=== PATIENT | female | born 1960 | race Caucasian/White ===

== ENCOUNTER → 2017-04-11 | Outpatient (CLI) | payer MEDICAID ==
[2017-04-11 13:07] LABS: AUTOMATED NEUTROPHIL # 5.4 TH/MM3 (1.8-7.7); BASOPHIL # 0.1 TH/MM3 (0-0.2); BASOPHIL % 0.9 % (0.0-2.0); EOSINOPHIL # 0.2 TH/MM3 (0-0.4); EOSINOPHIL % 2.4 % (0.0-4.0); HEMATOCRIT 45.3 % (35.0-46.0); HEMO FLAGS DIFF FINAL; HEMOGLOBIN 15.2 GM/DL (11.6-15.3); LYMPH % 21.6 % (9.0-44.0); LYMPHOCYTE # 1.7 TH/MM3 (1.0-4.8); MEAN CELL VOLUME 94.8 FL (80.0-100.0); MEAN CORPUSCULAR HEMOGLOBIN 31.8 PG (27.0-34.0); MEAN CORPUSCULAR HGB CONC 33.6 % (32.0-36.0); MEAN PLATELET VOLUME 9.1 FL (7.0-11.0); MONO % 7.6 % (0.0-8.0); MONOCYTE # 0.6 TH/MM3 (0-0.9); NEUT % 67.5 % (16.0-70.0); PLATELET COUNT 239 TH/MM3 (150-450); RED BLOOD COUNT 4.78 MIL/MM3 (4.00-5.30); RED CELL DISTRIBUTION WIDTH 13.6 % (11.6-17.2)
[2017-04-11 13:16] LABS: APTT (PATIENT) 25.7 SEC (24.3-30.1); PROTHROMBIN TIME - PATIENT 10.3 SEC (9.8-11.6)
[2017-04-11 13:32] LABS: BACTERIA, URINE MOD /hpf; BILIRUBIN, URINE NEG (NEG); BLOOD, URINE NEG (NEG); COMMENT (UR) CULTURE INDICATED; CULTURE IF INDICATED CULTURE INDICATED; GLUCOSE,URINE NEG (NEG); KETONE, URINE NEG (NEG); MUCUS URINE FEW /lpf (OCC); NITRITE,URINE NEG (NEG); PH, URINE 5.5 (5.0-8.5); SQUAMOUS EPITHELIAL CELL URINE 10 /hpf (0-5); URINE COLOR LIGHT-YELLOW (YELLW/STRAW); URINE LEUKOCYTE ESTERASE MOD (NEG)
[2017-04-11 13:37] LABS: ANION GAP 9 MEQ/L (5-15); BICARBONATE 26.3 MEQ/L (21.0-32.0); BLOOD UREA NITROGEN 10 MG/DL (7-18); CALCIUM 8.7 MG/DL (8.5-10.1); CHLORIDE 106 MEQ/L (98-107); CREATININE 0.94 MG/DL (0.50-1.00); GLOMERULAR FILTRATION RATE 61 ML/MIN (>89); GLUCOSE,FASTING 96 MG/DL (74-99); POTASSIUM 3.9 MEQ/L (3.5-5.1); SODIUM (NA) 141 MEQ/L (136-145)
== END ==
LOC: CPRE 11:19
DX: Z01.812 Encounter for preprocedural laboratory examination (principal); Z01.811 Encounter for preprocedural respiratory examination; Z01.810 Encounter for preprocedural cardiovascular examination; I73.9 Peripheral vascular disease, unspecified; B96.20 Unspecified Escherichia coli [E. coli] as the cause of diseases classified elsewhere; R94.31 Abnormal electrocardiogram [ECG] [EKG]
CPT/HCPCS: 36415; 71046; 80048; 81001; 85025; 85610; 85730; 87077; 87086; 87186; 93005

== ENCOUNTER 2017-04-17 07:16 | Inpatient (IN) | payer MEDICAID ==
[2017-04-17] VITALS (8 sets, daily range): PULSE 85–105; O2SAT 94
[~2017-04-17] VITALS: Ht 154.9 cm; Wt 64.0 kg
[~2017-04-17 07:16] MED LIST: ALBUAER3 INH; ECASA81 PO; FLUTI44I INH; LISI-519 PO; METO50TA PO; SIMV40TA PO
[2017-04-17] MEDS ORDERED: BUPIVACAINE HCL PF 0.5% 10 ML VIAL ONE (08:08)
[2017-04-17] MEDS ORDERED: PROTAMINE SULFATE 50 MG/5 ML VIAL ONE (08:08)
[2017-04-17] MEDS ORDERED: HEPARIN SODIUM - IV 10,000 UNITS/10 ML VIAL ONE (08:08)
[2017-04-17] MEDS ORDERED: HEPARIN SODIUM - SQ 10,000 UNITS/ML VIAL ONE (08:09)
[2017-04-17] MEDS ORDERED: THROMBIN (TOPICAL) 20,000 UNIT SPRAY KIT ONE (08:09)
[2017-04-17] MEDS ORDERED: HEPARIN-NS/PF INJ 500 ML ONE (08:09)
[2017-04-17] MEDS ORDERED: VANCOMYCIN HCL 1000 MG VIAL ONE (08:09)
[2017-04-17] MEDS ORDERED: ACETAMINOPHEN 1000 MG/100 ML 100 ML IV ONE (08:10)
[2017-04-17] MEDS ORDERED: FAMOTIDINE 20 MG/2 ML VIAL ONE (08:10)
[2017-04-17] MEDS ORDERED: CHLORHEXIDINE GLUCONATE 2 % 1 PACK (2 CLOTHS) TOPICAL PRN (08:30)
[2017-04-17] MEDS ORDERED: LACTATED RINGER'S 1000 ML IV PRN (08:30)
[2017-04-17] MEDS ORDERED: SODIUM CHLORID 0.9% 500 ML IV PRN (08:30)
[2017-04-17] MEDS ORDERED: METOPROLOL TARTRATE 25 MG TAB PO PRN (08:30)
[2017-04-17] MEDS ORDERED: POVIDONE IODINE 5% (ANTISEPSIS KIT) 4 APPLICATIONS EACH NARE PRN (08:30)
[2017-04-17] MEDS ORDERED: RESP: ALBUTEROL 2.5 MG/IPRATROPIUM 0.5 MG NEB (SCH) ONE (08:38)
--- NOTE | 2017-04-17 08:43 | HHI.HP ---
History of Present Illness Chief Complaint: B LE claudication History of Present Illness 56 yo female with 5-10 step B claudication, failed fem-fem bypass. Past/Family/Social History Past Medical History OA HTN CAD COPD XOL Past Surgical History eye surgery BTL fem-fem Social History + tobacco Family History NC Home Medications Reported Medications Albuterol 8.5 GM Inh (Proair Hfa 8.5 GM Inh) 90 Mcg/Act Aer, 2 PUFF INH Q4-6H Y for SHORTNESS OF BREATH, #1 INHALER 0 Refills 108 mcg/actuation 04/11/17 Fluticasone 10.6 GM Inh (Flovent Hfa 10.6 GM Inh) 44 Mcg/Act Inh, 2 PUFF INH BID for Asthma Management, #1 INHALER 0 Refills Use daily at the same time. 04/11/17 Metoprolol Tartrate (Metoprolol Tartrate) 50 Mg Tab, 50 MG PO BID, #60 TAB 0 Refills 04/11/17 Lisinopril (Lisinopril) 5 Mg Tab, 5 MG PO BID for Blood Pressure Management, # 30 TAB 0 Refills 04/11/[address] (Aspirin DR) 81 Mg Tabdr, 81 MG PO DAILY, TAB 0 Refills 04/11/17 Simvastatin (Simvastatin) 40 Mg Tab, 40 MG PO HS for Cholesterol Management, # 30 TAB 0 Refills 04/11/17 Coded Allergies: Penicillins (Verified Allergy, Severe, SHORTNESS OF BREATH, HIVES, 04/17/17 ) codeine (Verified Allergy, Severe, Shortness of Breath, 04/17/17) hydromorphone (Verified Allergy, Severe, Shortness of Breath, 04/17/17) oxycodone (Verified Allergy, Severe, Shortness of Breath, 04/17/17) Review of Systems Constitutional: DENIES: Fever, Chills Cardiovascular: COMPLAINS OF: Claudication, DENIES: Chest pain Physical Exam Vitals/I&O Date Time Temp Pulse Resp B/P (MAP) Pulse Ox O2 Delivery O2 Flow Rate FiO2 04/17/17 08:16 96.1 64 18 138/71 (93) 100 Neuro: AAO, MCCLAIN HEENT: NC/AT Neck: no JVD Heart: reg rate Lungs: clear Abdomen: soft NT Vascular: palp UE pulses, nonpalpable femoral pulses Laboratory Tests Test 04/17/17 07:50 CTA on BRANDT Cecily VTE Risk Assessment Caprini VTE Risk Assessment: Mod/High Risk (score >= 2) Caprini Risk Assessment Model Point Value = 1 Point Value = 2 Point Value = 3 Point Value = 5 Age 41-60 Minor surgery BMI > 25 kg/m2 Swollen legs Varicose veins or History of unexplained or recurrent spontaneous Oral contraceptives or hormone replacement Sepsis (< 1 month) Serious lung disease, including pneumonia (< 1 month) Abnormal pulmonary function Acute myocardial infarction Congestive heart failure (< 1 month) History of inflammatory bowel disease Medical patient at bed rest Age 61-74 Arthroscopic surgery Major open surgery (> 45 min) Laparoscopic surgery (> 45 min) Malignancy Confined to bed (> 72 hours) Immobilizing plaster cast Central venous access Age >= 75 History of VTE Family history of VTE Factor V Leiden Prothrombin [id number] Lupus anticoagulant Anticardiolipin antibodies Elevated serum homocysteine Heparin-induced thrombocytopenia Other congenital or acquired thrombophilia Stroke (< 1 month) Elective arthroplasty Hip, pelvis, or leg fracture Acute spinal cord injury (< 1 month) Prophylaxis Regimen Total Risk Factor Score Risk Level Prophylaxis Regimen 0-1 Low Early ambulation 2 Moderate Order ONE of the following: *Sequential Compression Device (SCD) *Heparin 5000 units SQ BID 3-4 Higher Order ONE of the following medications: *Heparin 5000 units SQ TID *Enoxaparin/Lovenox 40 mg SQ daily (WT < 150 kg, CrCl > 30 mL/min) *Enoxaparin/Lovenox 30 mg SQ daily (WT < 150 kg, CrCl > 10-29 mL/min) *Enoxaparin/Lovenox 30 mg SQ BID (WT < 150 kg, CrCl > 30 mL/min) AND/OR *Sequential Compression Device (SCD) 5 or more Highest Order ONE of the following medications: *Heparin 5000 units SQ TID (Preferred with Epidurals) *Enoxaparin/Lovenox 40 mg SQ daily (WT < 150 kg, CrCl > 30 mL/min) *Enoxaparin/Lovenox 30 mg SQ daily (WT < 150 kg, CrCl > 10-29 mL/min) *Enoxaparin/Lovenox 30 mg SQ BID (WT < 150 kg, CrCl > 30 mL/min) AND *Sequential Compression Device (SCD) Assessment and Plan Plan short distance claudication severe aorto-iliac occlusive disease plan for ABF Discharge Planning 5-7 days s.o [phone] Jesse Anaya MD Apr 17, 2017 08:43
[2017-04-17 08:51] LABS: AMORPHOUS SEDIMENT, URINE RARE; BACTERIA, URINE MANY /hpf; BILIRUBIN, URINE NEG (NEG); BLOOD, URINE TRACE (NEG); GLUCOSE,URINE NEG (NEG); KETONE, URINE NEG (NEG); MUCUS URINE FEW /lpf (OCC); NITRITE,URINE POS (NEG); PH, URINE 5.5 (5.0-8.5); SQUAMOUS EPITHELIAL CELL URINE 14 /hpf (0-5); URINE COLOR YELLOW (YELLW/STRAW); URINE LEUKOCYTE ESTERASE MOD (NEG); WHITE BLOOD CELL CLUMPS RARE
[2017-04-17] MEDS ORDERED: NITROGLYCERIN-D5W 50 MG/250 ML 250 ML ONE (11:48)
[2017-04-17] MEDS ORDERED: SODIUM CHLORID 0.9% 500 ML INJ 500 ML IV ONE (12:00)
[2017-04-17] MEDS ORDERED: ROCURONIUM INJ 50 MG/5 ML SYRINGE IV PUSH ONE (12:00)
[2017-04-17] MEDS ORDERED: PROPOFOL 200 MG/20 ML AMP IV ONE (12:00)
[2017-04-17] MEDS ORDERED: ONDANSETRON HCL 4 MG/2 ML VIAL IV ONE (12:00)
[2017-04-17] MEDS ORDERED: DEXAMETHASONE SOD PHOS 4 MG/ML VIAL IV ONE (12:00)
[2017-04-17] MEDS ORDERED: LIDOCAINE HCL 1% PF 5 ML SYRINGE OTHER ONE (12:00)
[2017-04-17] MEDS ORDERED: PHENYLEPH/NS 1000 MCG/10 ML SYR IV ONE (12:00)
[2017-04-17] MEDS ORDERED: NORMOSOL R INJ 3,000 ML IV ONE (12:00)
[2017-04-17] MEDS ORDERED: NEOSTIGMINE 5 MG/5 ML SYRINGE IV PUSH ONE (12:00)
[2017-04-17] MEDS ORDERED: SODIUM CHLOR 0.9% 250 ML INJ 250 ML IV ONE (12:00)
[2017-04-17] MEDS ORDERED: ePHEDrine/NS 25 MG/5 ML SYRINGE IV ONE (12:00)
[2017-04-17] MEDS ORDERED: GLYCOPYRROLATE 1 MG/5 ML SYRINGE IV PUSH ONE (12:00)
[2017-04-17] MEDS: D5-1/2 NS + KCL 20 MEQ INJ 1,000 ML IV SCH (13:39)
--- NOTE | 2017-04-17 13:39 | HHI.PR ---
cc: Jesse Anaya MD Immediate Post Op Note Procedure Date: Apr 17, 2017 Pre Op Diagnosis: PAD, failed fem-fem bypass Post Op Diagnosis: PAD, failed fem-fem bypass Surgeon: Jesse Anaya Watch Crystal Cutter(s): Cherelle Hudson Procedure: 1. ABF with 14x7 Dacron 2. R WINCHMAN/CRANE OPERATOR/PFA TEA and patch 3. L WINCHMAN/CRANE OPERATOR/PFA TEA and patch Findings: significant occlusive disease B WINCHMAN/CRANE OPERATOR Additional Information: strong, graft dependent Doppler signals in B feet Complications: none Specimen(s) removed: none Estimated blood loss: 600ml Anesthesia: General Drains: None Fluids: 3700mL IVF Urinary Output (mLs): 405 Patient to: CVICU Patient Condition: Fair Implant/Devices: SEE IMPLANT LOG (if applicable) Date/Time of Procedure: SEE SURGICAL CARE RECORD Jesse Anaya MD Apr 17, 2017 13:39
[2017-04-17] MEDS ORDERED: HYDROmorphone HCL PCA 6 MG/30 ML IV SCH (13:45)
[2017-04-17] MEDS ORDERED: NALOXONE HCL 0.4 MG/ML AMP IV PUSH PRN ×2 (13:45→14:45)
[2017-04-17] MEDS ORDERED: PCA - TOTAL MG DILAUDID DELIVERED PER SHIFT OTHER SCH (14:00)
[2017-04-17] MEDS ORDERED: MIDAZOLAM HCL 2 MG/2 ML VIAL ONE (14:40)
[2017-04-17] MEDS ORDERED: MORPHINE SULFATE 4 MG/ML INJ ONE (14:41)
[2017-04-17] MEDS ORDERED: MORPHINE SULFATE 30 MG/30 ML PCA IV SCH (14:45)
--- NOTE | 2017-04-17 15:59 | PD.CONS ---
HPI Service Critical Care Medicine Consult Requested By Dr. Anaya Reason for Consult s/p Aortobifemoral bypass Severe PAD COPD Primary Care Physician No Primary Care Physician History of Present Illness Patient is a 56-year-old white female with past medical history of severe peripheral arterial disease, severe aortoiliac occlusive disease, coronary artery disease, hypertension, COPD who has significant claudication history, and history of failed fem-fem bypass. Patient underwent aortobifem bypass with 14x7 Dacron, right and left DIVERSITY INTERN/PFA endarterectomy and patch. EBL 600 ml, IVF 3.6 L. I evaluated the patient in the ICU postop. Good urine output. Complaints of severe pain. RN getting ready to give morphine-tolerated in the OR Review of Systems ROS Limitations: Clinical Condition Past Family Social History Allergies: Coded Allergies: Penicillins (Verified Allergy, Severe, SHORTNESS OF BREATH, HIVES, 04/17/17 ) codeine (Verified Allergy, Severe, Shortness of Breath, 04/17/17) hydromorphone (Verified Allergy, Severe, Shortness of Breath, 04/17/17) oxycodone (Verified Allergy, Severe, Shortness of Breath, 04/17/17) Past Medical History Peripheral arterial disease COPD Hypertension CAD OA Past Surgical History Bilateral tubal ligation fem-fem bypass Reported Medications Albuterol PRN Fluticasone Metoprolol Tartrate (Metoprolol Tartrate) 50 Mg Tab, 50 MG PO BID Lisinopril (Lisinopril) 5 Mg Tab, 5 MG PO BID Aspirin 81 MG PO DAILY, TAB 0 Refills Simvastatin (Simvastatin) 40 Mg Tab, 40 MG PO HS Active Ordered Medications Reviewed Family History Unable to obtain as patient is lethargic postop Social History Smokes 2 packs of cigarettes daily Physical Exam Vital Signs Vital Signs Date Time Temp Pulse Resp B/P (MAP) Pulse Ox O2 Delivery O2 Flow Rate FiO2 04/17/17 15:19 85 04/17/17 08:16 96.1 64 18 138/71 (93) 100 Physical Exam GEN: 56 yo female, lying in bed HEENT: NC/AT. BENITA. Neck: no jvd. trachea midline. Chest: Air entry equal bilaterally, no wheezes CV: Normal rate, regular rhythm. No murmur GI: Abdominal binder in place, lower visible portion of incision CDI EXT: Bilateral groins with Prevena wound vac dressing Neuro: Moderate distress due to pain, no focal deficits Laboratory Laboratory Tests Test 04/17/17 07:50 Urine Color YELLOW Urine Turbidity HAZY Urine pH 5.5 Urine Specific [place] 1.017 Urine Protein TRACE Urine Glucose (UA) NEG Urine Ketones NEG Urine Occult Blood TRACE Urine Nitrite POS Urine Bilirubin NEG Urine Urobilinogen LESS THAN 2.0 Urine Leukocyte Esterase MOD Urine RBC 3 Urine WBC 25 Urine WBC Clumps RARE Urine Squamous Epithelial Cells 14 Urine Amorphous Sediment RARE Urine Bacteria MANY Urine Mucus FEW Microscopic Urinalysis Comment CULTURE INDICATED Date/Time Source Procedure Growth Status 04/17/17 07:50 Urine Clean Catch Urine Culture Pending Received Assessment and Plan Assessment and Plan ASSESSMENT: s/p Aortobifemoral bypass Severe PAD COPD Coronary artery disease Hypertension Dyslipidemia Tobacco abuse PLAN: NEURO: - Morphine RESTAURANT CREW, and Tylenol when necessary for pain RESP: - Nasal cannula oxygen to keep Saturation above 90% - DuoNeb every 6 hours scheduled. Aggressive pulmonary toilet - Continue albuterol when necessary, continue scheduled Flovent - Tobacco cessation CV: - Postop management per Dr. Anaya - Continue IV fluid at 84 mL per hour D5 half-normal saline with potassium - Continue metoprolol lisinopril and Lipitor - Start aspirin tomorrow GI: - NPO, NGT - IV famotidine for GI prophylaxis : - Monitor renal function closely. Maintain urine output more than 0.5 ml per kg per hour ID: - Perioperative antibiotics per vascular surgery HEME: - Monitor CBC, CMP ENDO: - Electrolyte replacement per protocol PROPH: - IV famotidine, start Lovenox subcutaneous daily from 04/18/17 Level 2 new consult Sreedhar Oscar MD Apr 17, 2017 15:59
[2017-04-17] MEDS ORDERED: DO NOT ADM ANY ANTICOAGULANT DRUGS PRN (16:00)
[2017-04-17 16:15] LABS: HEMATOCRIT 39.7 % (35.0-46.0); HEMOGLOBIN 12.9 GM/DL (11.6-15.3); MEAN CELL VOLUME 93.4 FL (80.0-100.0); MEAN CORPUSCULAR HEMOGLOBIN 30.3 PG (27.0-34.0); MEAN CORPUSCULAR HGB CONC 32.4 % (32.0-36.0); MEAN PLATELET VOLUME 8.9 FL (7.0-11.0); PLATELET COUNT 220 TH/MM3 (150-450); RED BLOOD COUNT 4.25 MIL/MM3 (4.00-5.30); RED CELL DISTRIBUTION WIDTH 13.8 % (11.6-17.2); WHITE BLOOD COUNT 18.6 TH/MM3 (4.0-11.0)
[2017-04-17 16:43] LABS: BICARBONATE 21.3 MEQ/L (21.0-32.0); CALCIUM 6.5 MG/DL (8.5-10.1); CREATININE 0.85 MG/DL (0.50-1.00)
[2017-04-17 16:59] LABS: TOTAL PROTEIN 5.8 GM/DL (6.4-8.2)
[2017-04-17 17:07] LABS: CALCIUM-PROTEIN CORRECTED 7.1 MG/DL (8.5-10.1)
[2017-04-17] MEDS ORDERED: RESP: ALBUTEROL 2.5 MG/3 ML NEB (PRN) ONE (18:04)
[2017-04-17] MEDS ORDERED: RESP: ALBUTEROL 2.5 MG/3 ML NEB (SCH) INH ONE (18:30)
[2017-04-17] MEDS ORDERED: SODIUM CHLOR 0.9% 1000 ML INJ 1,000 ML IV ONE (20:45)
[2017-04-17] MEDS ORDERED: FAMOTIDINE 20 MG/2 ML VIAL IV PUSH SCH (21:00)
[2017-04-17] MEDS: METOPROLOL TARTRATE 50 MG TAB PO SCH (21:00)
[2017-04-17] MEDS: ATORVASTATIN 40 MG TAB PO SCH (21:00)
[2017-04-17] MEDS ORDERED: LISINOPRIL 5 MG TAB PO SCH (21:00)
[2017-04-17] MEDS: FLUTICASONE PROPIONATE 44 MCG/ACT 10.6 GM INHALER INH SCH (21:28)
[2017-04-17] MEDS: PCA - TOTAL MG MORPHINE DELIVERED PER SHIFT SCH (21:36)
[2017-04-17] MEDS: RESP: ALBUTEROL 2.5 MG/IPRATROPIUM 0.5 MG NEB (SCH) NEB (22:34)
[2017-04-18] VITALS (14 sets, daily range): BP systolic 113–115; BP diastolic 76–78; PULSE 105–122; RESP 16–17; TEMP 100.4–101.1; O2SAT 88–99
[2017-04-18] MEDS ORDERED: SODIUM CHLOR 0.9% 1000 ML INJ 1,000 ML IV SCH ×2 (00:30→05:45)
[2017-04-18] MEDS: RESP: ALBUTEROL 2.5 MG/3 ML NEB (PRN) INH ×2 (01:19→17:29)
[2017-04-18] MEDS: MORPHINE SULFATE 30 MG/30 ML PCA IV SCH ×2 (02:04→15:38)
[2017-04-18] MEDS: D5-1/2 NS + KCL 20 MEQ INJ 1,000 ML IV SCH (02:53)
[2017-04-18] MEDS: RESP: ALBUTEROL 2.5 MG/IPRATROPIUM 0.5 MG NEB (SCH) NEB ×4 (04:27→20:00)
[2017-04-18 04:52] LABS: AUTOMATED NEUTROPHIL # 14.9 TH/MM3 (1.8-7.7); BASOPHIL % 0.3 % (0.0-2.0); HEMATOCRIT 35.8 % (35.0-46.0); HEMOGLOBIN 11.6 GM/DL (11.6-15.3); LYMPHOCYTE # 0.7 TH/MM3 (1.0-4.8); MEAN CELL VOLUME 95.2 FL (80.0-100.0); MEAN CORPUSCULAR HEMOGLOBIN 30.9 PG (27.0-34.0); MEAN CORPUSCULAR HGB CONC 32.5 % (32.0-36.0); MEAN PLATELET VOLUME 9.2 FL (7.0-11.0); MONO % 7.7 % (0.0-8.0); MONOCYTE # 1.3 TH/MM3 (0-0.9); PLATELET COUNT 221 TH/MM3 (150-450); RED BLOOD COUNT 3.76 MIL/MM3 (4.00-5.30); RED CELL DISTRIBUTION WIDTH 13.7 % (11.6-17.2); WHITE BLOOD COUNT 16.9 TH/MM3 (4.0-11.0)
[2017-04-18] MEDS: PCA - TOTAL MG MORPHINE DELIVERED PER SHIFT SCH ×3 (05:13→22:00)
[2017-04-18 05:17] LABS: ALBUMIN 2.5 GM/DL (3.4-5.0); BICARBONATE 20.7 MEQ/L (21.0-32.0); CALCIUM 6.5 MG/DL (8.5-10.1); CREATININE 1.52 MG/DL (0.50-1.00); TOTAL BILIRUBIN ADULT 0.2 MG/DL (0.2-1.0); TOTAL PROTEIN 5.5 GM/DL (6.4-8.2)
[2017-04-18 05:23] LABS: CALCIUM-PROTEIN CORRECTED 7.3 MG/DL (8.5-10.1)
--- NOTE | 2017-04-18 06:49 | PD.VS.PN ---
Subjective POD #: 1 Procedure(s): ABF with bilateral groin reconstructions Subjective/Hospital Course Overnight, modest hypotension and marginal UOP. Pt very thirsty. Objective Neuro: slightly somnolent; MCCLAIN; no complaints of foot pain Pulmonary: NC O2. Decent sats Cardiac: reg rate, mild tachycardia FEN/GI: NGT with gastric secretions, non bilious Na 141 K 3.7 abdomen soft : UOP 20cc/h; cr increased to 1.5 ID Antibiotics(date/duration): pre-op VANC (PCN allergy) Will start Bactrim for pre-operative UTI - d/c 04/23 ID Cultures: + urine culture pending ,prelim sensitive to all except cipro Heme: Hct 36 plt 221 Vascular: palpable pedal pulses (DP) bilaterally groin VACs in place Laboratory Laboratory Tests Test 04/17/17 07:50 04/17/17 15:30 04/18/17 03:30 Urine Color YELLOW Urine Turbidity HAZY Urine pH 5.5 Urine Specific [place] 1.017 Urine Protein TRACE Urine Glucose (UA) NEG Urine Ketones NEG Urine Occult Blood TRACE Urine Nitrite POS Urine Bilirubin NEG Urine Urobilinogen LESS THAN 2.0 Urine Leukocyte Esterase MOD Urine RBC 3 Urine WBC 25 Urine WBC Clumps RARE Urine Squamous Epithelial Cells 14 Urine Amorphous Sediment RARE Urine Bacteria MANY Urine Mucus FEW Microscopic Urinalysis Comment CULTURE INDICATED White Blood Count 18.6 16.9 Red Blood Count 4.25 3.76 Hemoglobin 12.9 11.6 Hematocrit 39.7 35.8 Mean Corpuscular Volume 93.4 95.2 Mean Corpuscular Hemoglobin 30.3 30.9 Mean Corpuscular Hemoglobin Concent 32.4 32.5 Red Cell Distribution Width 13.8 13.7 Platelet Count 220 221 Mean Platelet Volume 8.9 9.2 Blood Urea Nitrogen 11 14 Creatinine 0.85 1.52 Random Glucose 200 156 Total Protein 5.8 5.5 Calcium Level 6.5 6.5 Sodium Level 142 141 Potassium Level 3.9 4.7 Chloride Level 111 113 Carbon Dioxide Level 21.3 20.7 Anion Gap 10 7 Estimat Glomerular Filtration Rate 69 35 Protein Corrected Calcium 7.1 7.3 Neutrophils (%) (Auto) 88.0 Lymphocytes (%) (Auto) 4.0 Monocytes (%) (Auto) 7.7 Eosinophils (%) (Auto) 0.0 Basophils (%) (Auto) 0.3 Neutrophils # (Auto) 14.9 Lymphocytes # (Auto) 0.7 Monocytes # (Auto) 1.3 Eosinophils # (Auto) 0.0 Basophils # (Auto) 0.0 CBC Comment DIFF FINAL Differential Comment Albumin 2.5 Alkaline Phosphatase 39 Aspartate Amino Transf (AST/SGOT) 20 Alanine Aminotransferase (ALT/SGPT) 13 Total Bilirubin 0.2 Date/Time Source Procedure Growth Status 04/17/17 07:50 Urine Clean Catch Urine Culture Pending Received Assessment and Plan Plan POD#1 s/p ABF Still fluid avid, req sev boluses last night. UOP marginal and creatinine up. Hct stable and abdomen soft. palpable pedal pulses 1. Continue IVF resuscitation. Check FENa this morning - ordered; recheck BMP midday (ordered for 1400) 2. Antibiotics for UTI 3. Continue pulse checks 4. OOB TC today 5. Potentially remove NGT midday Discharge Planning 5-7 days s.o [phone] Jesse Anaya MD Apr 18, 2017 06:49
[2017-04-18] MEDS ORDERED: CALCIUM CHLORIDE INJ 1 GM in SODIUM CHLORIDE 0.9% INJ 100 ML IV SCH (07:00)
[2017-04-18] MEDS ORDERED: CALCIUM CHLORIDE INJ 2 GM in SODIUM CHLORIDE 0.9% INJ 100 ML IV SCH (07:00)
[2017-04-18] MEDS: ALBUTEROL SULFATE 90 MCG/ACT HFA 8 GM INHALER INH PRN (07:37)
[2017-04-18] MEDS ORDERED: SODIUM BICARBONATE 8.4% INJ 50 MEQ/50 ML SYR ONE (08:25)
[2017-04-18] MEDS ORDERED: SODIUM BICARBONATE 8.4% INJ 50 MEQ/50 ML SYR IV PUSH ONE (08:30)
[2017-04-18] MEDS ORDERED: SODIUM BICARBONATE 8.4% INJ 150 MEQ in WATER STERILE FOR INJ 850 ML IV SCH (08:30)
[2017-04-18] MEDS ORDERED: SODIUM CHLOR 0.9% 1000 ML INJ 1,000 ML IV ONE (08:30)
--- NOTE | 2017-04-18 08:50 | HHI.CCPN ---
Subjective Remarks/Hospital Course Patient is a 56-year-old white female with past medical history of severe peripheral arterial disease, severe aortoiliac occlusive disease, coronary artery disease, hypertension, COPD who has significant claudication history, and history of failed fem-fem bypass. Patient underwent aortobifem bypass with 14x7 Dacron, right and left FOOD BROKER/PFA endarterectomy and patch. EBL 600 ml, IVF 3.6 L. I evaluated the patient in the ICU postop. Good urine output. Complaints of severe pain. RN getting ready to give morphine-tolerated in the OR 04/18: Urine output marginal 20 mL per KG per hour overnight, borderlin hypotensive. Received total 3 L normal saline boluses. Creatinine has increased from 0.85-1.5. ABG shows metabolic acidosis pH 7.2 PCO2 44 PO2 60 base excess -10. Additional 1 L fluid bolus ordered. 2 Amps of bicarbonate and change maintenance IV fluid to bicarbonate infusion at 150 ML per hour. Chest x-ray pending. Increasing oxygen requirement now requiring 6 L/h. Check lactic acid. Did discuss with Dr. Anaya. Continue aggressive fluid resuscitation. Hold Lisinopril, reduce metoprolol to 25 q12. UTI with E Coli /. Bactrim started by Dr. Anaya- change to Azactam 1gm IV q12 Objective Vital Signs Date Time Temp Pulse Resp B/P (MAP) Pulse Ox O2 Delivery O2 Flow Rate FiO2 04/18/17 08:29 91 Nasal Cannula 6.00 04/18/17 05:13 18 04/18/17 03:00 105 04/17/17 08:16 96.1 138/71 (93) Intake and Output 04/18/17 04/18/17 04/19/17 08:00 16:00 00:00 Intake Total 2428 ml Output Total 270 ml Balance 2158 ml Result Diagram: 04/18/1732904/18/17329 Objective Remarks GEN: 56 yo female, lying in bed, moderate distress, tachycardic HEENT: NC/AT. BENITA. Neck: no jvd. trachea midline. Chest: Air entry equal bilaterally, no wheezes. Hypoxemic on the nasal cannula 6 L CV: Sinus tachycardia. No murmur. Borderline hypotensive GI: Abdominal binder in place, abdomen tender but soft, midline vertical incision CDI. Mild erythema surrounding incision EXT: Bilateral groins with Prevena wound vac dressing. DP/PT +ve by Doppler bilaterally Neuro: Moderate distress due to pain, no focal deficits Urinary Catheter: Yes Assessment to: Continue A/P Assessment and Plan ASSESSMENT: s/p Aortobifemoral bypass Hypotension/tachycardia SIRS UTI Acute kidney injury Probable sepsis Severe PAD COPD Coronary artery disease Hypertension Dyslipidemia Tobacco abuse PLAN: NEURO: - Morphine GENERAL CARGO CLERK, and Tylenol when necessary for pain RESP: - Nasal cannula oxygen to keep Saturation above 90% - DuoNeb every 6 hours scheduled. Aggressive pulmonary toilet - Continue albuterol when necessary, continue scheduled Flovent - Tobacco cessation - May require IV steroids if persistently hypoxic CV: - Patient appears under resuscitated (hypotensive with low urine output) - Received 3 L of crystalloids overnight give additional 1 L - Bicarbonate to correct acidosis unchanged to bicarbonate infusion at 150 ML per hour - Postop management per Dr. Anaya - Continue metoprolol, after low-dose 25 mg twice a day, hold lisinopril lisinopril - Continue Lipitor - Start aspirin tomorrow GI: - NPO, NGT - IV famotidine for GI prophylaxis : - Monitor renal function closely. Maintain urine output more than 0.5 ml per kg per hour - Continue aggressive fluid resuscitation given acute kidney injury - Repeat CMP in the afternoon ID: - Preop UTI with Escherichia coli - Discontinue Bactrim secondary to renal failure, placed on Azactam 1 g every 12 - Check blood cultures HEME: - Monitor CBC, CMP ENDO: - Electrolyte replacement per protocol PROPH: - IV famotidine, Lovenox subcutaneous daily from 04/18/17 CCT 35 MIN Currently appears under resuscitated, creatinine increased from 0.8-1.5 with marginal urine output and hypotension. Continue aggressive fluid resuscitation. Repeat chemistry at 2 PM. Increasing hypoxia requiring oxygen by nasal cannula at 6 L. Closely monitor in ICU. At risk for acute decompensation Sreedhar Oscar MD Apr 18, 2017 08:50
[2017-04-18 09:00] LABS: CREATININE, RANDOM URINE 171.7 MG/DL
[2017-04-18] MEDS: SULFAMETHOXAZOLE-TRIMETHOPRIM 400-80 MG TAB PO SCH ×2 (09:00→21:59)
[2017-04-18] MEDS: AZTREONAM INJ 1,000 MG in SODIUM CHLORIDE 0.9% INJ 100 ML IV SCH ×2 (09:00→21:58)
--- NOTE | 2017-04-18 09:52 | RADRPT ---
EXAM DATE/TIME: 04/18/2017 08:38 [facility] COMPARISON: CHEST PA & LAT, April 11, 2017, 12:23. INDICATIONS : Respiratory disease. MEDICAL HISTORY : None. SURGICAL HISTORY : None. ENCOUNTER: Initial ACUITY: 1 day PAIN SCORE: 0/10 LOCATION: Bilateral chest FINDINGS: There is an NGT coursing beyond the GE junction with the provided from the image. Bilateral lower destin g zone airspace disease. Cardiomediastinal contours are within normal limits. Remainder of the exam i s unchanged. CONCLUSION: 1. NGT beyond the GE junction. 2. Bilateral lower lung zone airspace disease which may reflect atelectasis. Although aspiration and pneumonia cannot be excluded in the appropriate clinical setting. Alex Bridges MD on April 18, 2017 at 9:47 Board Certified Radiologist. This report was verified electronically.
[2017-04-18] MEDS: INSULIN ASPART SUPPLEMENTAL SCALE SQ SCH ×3 (12:00→21:00)
[2017-04-18] MEDS: FLUTICASONE PROPIONATE 44 MCG/ACT 10.6 GM INHALER INH SCH ×2 (12:50→21:00)
[2017-04-18] MEDS: METOPROLOL TARTRATE 5 MG/5 ML VIAL IV PUSH PRN ×2 (12:55→15:20)
[2017-04-18] MEDS ORDERED: methylPREDNISolone SOD SUCC 125 MG/2 ML VIAL ONE (14:23)
[2017-04-18] MEDS: ENOXAPARIN SODIUM 30 MG/0.3 ML SYRINGE SQ SCH (14:29)
[2017-04-18] MEDS ORDERED: methylPREDNISolone SOD SUCC 125 MG/2 ML VIAL IV ONE (14:30)
--- NOTE | 2017-04-18 14:59 | RADRPT ---
EXAM DATE/TIME: 04/18/2017 14:14 [facility] COMPARISON: CHEST SINGLE AP, April 18, 2017, 8:38. INDICATIONS : Short of breath MEDICAL HISTORY : Cardiovascular disease. SURGICAL HISTORY : CABG. ENCOUNTER: Subsequent ACUITY: 1 day PAIN SCORE: 10/10 LOCATION: Bilateral chest FINDINGS: NG tip in stomach. Basilar airspace disease with small effusions. No pneumothorax. Heart size mildly enlarged. CONCLUSION: Basilar airspace disease with small effusions. Findings similar to earlier exam. Andrade Hester MD on April 18, 2017 at 14:56 Board Certified Radiologist. This report was verified electronically.
[2017-04-18] MEDS: ASPIRIN 81 MG CHEW TAB PO SCH (15:33)
--- NOTE | 2017-04-18 15:37 | MP ---
cc: ARTHUR ANAYA MD DATE OF SURGERY: 04/17/2017 PREOPERATIVE DIAGNOSIS: Peripheral arterial occlusive disease, aortoiliac occlusive disease. POSTOPERATIVE DIAGNOSIS Peripheral arterial occlusive disease, aortoiliac occlusive disease. PROCEDURE: 1. Right common femoral and profunda endarterectomy and patch angioplasty. 2. Left common femoral artery, profunda and endarterectomy patch angioplasty. 3. Aortobifemoral bypass graft with 14 x 7 Dacron. ATTENDING SURGEON: Dr. Anaya. OTORHINOLARYNGOLOGIST SURGEON Cherelle Hudson. ANESTHESIA General INDICATION Ms. Flores is a 56-year-old female with aortoiliac occlusive disease and short distance claudication less than 20 feet. She has a failed fem-fem bypass and is taken to the operating room for definitive inflow procedure. Intraoperatively it was found she had significant groin disease and both groins were endarterectomized and patched prior to performing the aortobifemoral bypass graft. DESCRIPTION OF PROCEDURE: Informed consent was obtained from the patient. She was taken to the operating room, placed supine on the operating room table. An appropriate time-out was taken to ensure the patient's identity, the operative site and planned procedure. A gram of vancomycin was initiated prior to the skin incision and will be discontinued after a single preoperative dose. Everyone in the room agreed to time out, and we proceeded. She was prepped from her chin to her toes. A vertical incision was made in the patient's both groins, carried down to the subcutaneous tissue with electrocautery. Dense scar tissue was encountered and the common femoral artery, external iliac artery and both in both ends of the fem-fem bypasses were all dissected free. Additionally, we dissected down the profunda and SFA on both groins. A tunnel was started to be created off the external iliac artery taking caution to save right on the anterior aspect of the external artery. A vertical incision was made in the patient's midline abdomen, carried down to the subcutaneous tissue with electrocautery. The fascia was divided with the electrocautery. The peritoneum was sharply entered and the entire abdominal contents were explored and found no untoward pathology other than a left ovarian cyst. The bowel was swept to the patient's right hand side and the infrarenal aorta was identified and dissected free between the renals and the VINOD. The renal vein was retracted cephalad and the infrarenal aorta was dissected free to place clamps on it. DeBakey aorta clamps were placed along the external iliac arteries from the groins up the abdominal incision, taking caution to stay right on the arteries themselves. The patient was systemically heparinized and throughout the remainder of the case the ACT was kept greater than 250 with additional reboluses of heparin. Proximal and distal control of the infrarenal aorta were obtained with a Rifle clamp and a DeBakey aorta clamp and a longitudinal aortotomy was made with an 11 blade extended with [place] scissors. A 14 x 7 Dacron was brought up on the field, spatulated, and sewn end-to-side with running 4-0 Prolene suture. At the completion of the procedure, the wound was flushed, noted to be hemostatic with repair sutures on the distal aspect. Mariela soft joules were placed on the limbs of the bifurcated Dacron and the Dacron limbs were passed in the tunnels down to the groins. The external iliac arteries were clamped with adult profunda clamps and the SFA and profundas were clamped with profunda clamps as well. On both groins a longitudinal arteriotomy was made with an 11 blade extended with [place] scissors. The fem-fem bypass was excised and oversewn with 4-0 Prolene suture. The common femoral artery and profunda were endarterectomized and a 1 x 6 bovine pericardial patch was brought up under the field and sewn to both groins with running 5-0 Prolene suture. A longitudinal patchotomy was made with an 11 blade on both groins, and extended with [place] scissors. The ABF limbs were then cut to appropriate length, spatulated, and sewn end-to-side with running 5-0 Prolene suture. The clamps were released. There were strong palpable pulses in both the profunda and SFA and Doppler signals that were graft dependent on the feet. The wounds were made hemostatic, irrigated. The aorta was re-retroperitonealized with running 2-0 Polysorb. The abdominal contents were then explored and there was no retained surgical item and the abdominal fascia was closed with #1 looped PDS and the skin was closed with 2 Polysorb and 4-0 Monocryl. The groins were closed in four layers with two layers of 2-0 Polysorb, 3-0 Polysorb and 4-0 Monocryl. The sponge and needle counts were correct at the end of the case. I was present and scrubbed for the entire procedure. The patient was then extubated and transported to the Cardiovascular Intensive Care Unit in stable condition. MD JAMIL Chapin/ETHEL /5:51 PM /3:02 PM MTDJoya
[2017-04-18] MEDS: SODIUM BICARBONATE 8.4% INJ 100 MEQ in DEXTROSE 5% IN WATE 1000ML INJ 1,000 ML IV SCH ×2 (17:25)
[2017-04-18 17:26] LABS: ALBUMIN 2.2 GM/DL (3.4-5.0); BICARBONATE 26.4 MEQ/L (21.0-32.0); CALCIUM 7.1 MG/DL (8.5-10.1); CALCIUM-PROTEIN CORRECTED 8.1 MG/DL (8.5-10.1); CREATININE 1.18 MG/DL (0.50-1.00); TOTAL BILIRUBIN ADULT 0.4 MG/DL (0.2-1.0); TOTAL PROTEIN 5.3 GM/DL (6.4-8.2)
[2017-04-18] MEDS ORDERED: FUROSEMIDE 40 MG/4 ML VIAL ONE (17:27)
[2017-04-18] MEDS ORDERED: DEXTROSE 50% IN WATER 50 ML VIAL(D50) IV PUSH PRN (17:45)
[2017-04-18] MEDS ORDERED: FUROSEMIDE 40 MG/4 ML VIAL IV PUSH ONE (17:45)
[2017-04-18] MEDS ORDERED: GLUCAGON 1 MG/ML VIAL OTHER PRN (17:45)
[2017-04-18] MEDS ORDERED: ETOMIDATE 40 MG/20 ML VIAL ONE (17:54)
[2017-04-18] MEDS ORDERED: MIDAZOLAM HCL 5 MG/ML VIAL (1 ML) ONE (17:55)
[2017-04-18] MEDS ORDERED: PROPOFOL 500 MG/50 ML INJ 50 ML ONE (18:06)
--- NOTE | 2017-04-18 18:26 | PD.PROCEDR ---
Procedure Note Procedure Indication: Severe hypoxemic respiratory failure INTUBATION: The patient was put in optimal position for the procedure. Rapid sequence intubation was initiated by me using 10 milligrams of Versed IV and Rocuronium 50 milligrams IV. The patient was intubated with a 8 cuffed endotracheal tube. Tube placement was confirmed by visualization of the tube and balloon passing through the cords, capnometry and chest x-ray is pending. Breath sounds were equal and well aerated bilaterally postintubation. No breath sounds over stomach. Patient tolerated procedure well. Sreedhar Oscar MD Apr 18, 2017 18:26
[2017-04-18] MEDS ORDERED: PROPOFOL 1000 MG/100 ML IV PRN (18:27)
[2017-04-18] MEDS ORDERED: RASS Change Order XX ONE (18:45)
[2017-04-18] MEDS ORDERED: SODIUM CHLORID 0.9% 500 ML INJ 500 ML IV ONE (19:00)
--- NOTE | 2017-04-18 19:13 | RADRPT ---
EXAM DATE/TIME: 04/18/2017 18:17 [facility] COMPARISON: CHEST SINGLE AP, April 18, 2017, 14:14. INDICATIONS : ET tube placement. MEDICAL HISTORY : Cardiovascular disease SURGICAL HISTORY : CABG. ENCOUNTER: Subsequent ACUITY: 1 day PAIN SCORE: Non-responsive. LOCATION: Bilateral chest FINDINGS: Endotracheal tube and nasogastric tube in good position. Bilateral mostly basilar airspace disease an d pleural effusions. Findings similar to April 18. No pneumothorax. CONCLUSION: Endotracheal tube in good position. Air space disease similar to prior exam. Andrade Hester MD on April 18, 2017 at 19:10 Board Certified Radiologist. This report was verified electronically.
[2017-04-18] MEDS: fentaNYL 2,500 MCG/NS 250 ML IV PRN (19:24)
[2017-04-18] MEDS: CHLORHEXIDINE 0.12% (ORAL KIT) 15 ML CUP MT SCH (20:00)
[2017-04-18] MEDS ORDERED: SODIUM BICARBONATE 8.4% INJ 100 MEQ in DEXTROSE 5% IN WATE 1000ML INJ 1,000 ML IV SCH ×2 (20:00)
[2017-04-18] MEDS: METOPROLOL TARTRATE 50 MG TAB PO SCH (21:00)
[2017-04-18] MEDS: FAMOTIDINE 20 MG/2 ML VIAL IV PUSH SCH (21:59)
[2017-04-18] MEDS: ATORVASTATIN 40 MG TAB PO SCH (21:59)
[2017-04-19] VITALS (15 sets, daily range): BP systolic 100–127; BP diastolic 60–79; PULSE 76–109; RESP 16; TEMP 98.4–99.9; O2SAT 97–99
[2017-04-19] MEDS: RESP: ALBUTEROL 2.5 MG/IPRATROPIUM 0.5 MG NEB (SCH) NEB ×6 (00:42→20:28)
[2017-04-19] MEDS ORDERED: methylPREDNISolone SOD SUCC 125 MG/2 ML VIAL IV SCH (02:00)
[2017-04-19] MEDS: SODIUM BICARBONATE 8.4% INJ 100 MEQ in DEXTROSE 5% IN WATE 1000ML INJ 1,000 ML IV SCH ×2 (04:00)
--- NOTE | 2017-04-19 04:21 | RADRPT ---
EXAM DATE/TIME: 04/19/2017 03:29 [facility] COMPARISON: CHEST SINGLE AP, April 18, 2017, 18:17. INDICATIONS : Short of breath. MEDICAL HISTORY : Cardiovascular disease. SURGICAL HISTORY : CABG. ENCOUNTER: Subsequent ACUITY: 4 - 6 days PAIN SCORE: 0/10 LOCATION: Bilateral chest FINDINGS: ET tube tip 3 cm above the ruben. Gastric tube side-port is 1.5 cm above the level of the hemidiaph ragm. The lungs are symmetrically aerated with some mild patchy air space opacities centrally which have improved since prior examination. No consolidation seen. CONCLUSION: 1. Improving bilateral infiltrates. 2. The side-port of the gastric tube is above the level of the diaphragm and needs to be advanced demario roximately 2 cm. Bairon Villela MD on April 19, 2017 at 4:18 Board Certified Radiologist. This report was verified electronically.
[2017-04-19 04:24] LABS: AUTOMATED NEUTROPHIL # 12.9 TH/MM3 (1.8-7.7); BASOPHIL % 0.1 % (0.0-2.0); HEMATOCRIT 31.5 % (35.0-46.0); HEMOGLOBIN 10.4 GM/DL (11.6-15.3); LYMPH % 3.2 % (9.0-44.0); LYMPHOCYTE # 0.5 TH/MM3 (1.0-4.8); MEAN CELL VOLUME 91.7 FL (80.0-100.0); MEAN CORPUSCULAR HEMOGLOBIN 30.2 PG (27.0-34.0); MEAN CORPUSCULAR HGB CONC 32.9 % (32.0-36.0); MEAN PLATELET VOLUME 9.3 FL (7.0-11.0); MONO % 7.1 % (0.0-8.0); NEUT % 89.6 % (16.0-70.0); PLATELET COUNT 159 TH/MM3 (150-450); RED BLOOD COUNT 3.44 MIL/MM3 (4.00-5.30); RED CELL DISTRIBUTION WIDTH 13.4 % (11.6-17.2); WHITE BLOOD COUNT 14.4 TH/MM3 (4.0-11.0)
[2017-04-19 04:59] LABS: ALBUMIN 1.9 GM/DL (3.4-5.0); BICARBONATE 25.1 MEQ/L (21.0-32.0); CALCIUM 7.1 MG/DL (8.5-10.1); CALCIUM-PROTEIN CORRECTED 8.1 MG/DL (8.5-10.1); CREATININE 1.51 MG/DL (0.50-1.00); MAGNESIUM 1.7 MG/DL (1.5-2.5); TOTAL BILIRUBIN ADULT 1.1 MG/DL (0.2-1.0); TOTAL PROTEIN 5.2 GM/DL (6.4-8.2)
[2017-04-19] MEDS: PCA - TOTAL MG MORPHINE DELIVERED PER SHIFT SCH (06:00)
[2017-04-19] MEDS ORDERED: POTASSIUM CHLORIDE INJ 40 MEQ in SODIUM CHLOR 0.45% 1000 ML INJ 1,000 ML IV SCH (07:00)
[2017-04-19] MEDS ORDERED: SODIUM CHLOR 0.9% 250 ML INJ 250 ML IV SCH (07:00)
--- NOTE | 2017-04-19 07:57 | PD.VS.PN ---
Subjective POD #: 2 Procedure(s): ABF with bilateral groin reconstructions Subjective/Hospital Course Appropriate fluid resuscitation yesterday and req reintubation last night Looks great this morning; improved oxygenation and CXR better Objective Neuro: alert, MCCLAIN, pain controlled Pulmonary: vent, good sats. CXR better Cardiac: reg rate FEN/GI: NPO, NGT MIVF Still intravascularly dry but overall fluid overloaded : good UOP; cr 1.5 from 1.1 Heme: stable Vascular: palpable DP bilaterally groins incisions with VAC Abdominal incision ok Laboratory Laboratory Tests Test 04/18/17 08:00 04/18/17 08:20 04/18/17 11:56 04/18/17 16:29 Urine Random Creatinine 171.7 Urine Random Sodium 11 Lactic Acid Level 1.9 1.1 Blood Gas Puncture Site KAMAR Blood Gas Patient Temperature 98.6 Blood Gas HCO3 21 Blood Gas Base Excess -4.1 Blood Gas Oxygen Saturation 90 Arterial Blood pH 7.29 Arterial Blood Partial Pressure CO2 46 Arterial Blood Partial Pressure O2 64 Arterial Blood Oxygen Content 13.4 Arterial Blood Carboxyhemoglobin 1.2 Arterial Blood Methemoglobin 1.5 Blood Gas Hemoglobin 10.6 Oxygen Delivery Device SIMPLE MASK Blood Gas Liter Flow 8 Blood Urea Nitrogen 15 Creatinine 1.18 Random Glucose 109 Total Protein 5.3 Albumin 2.2 Calcium Level 7.1 Alkaline Phosphatase 41 Aspartate Amino Transf (AST/SGOT) 48 Alanine Aminotransferase (ALT/SGPT) 16 Total Bilirubin 0.4 Sodium Level 145 Potassium Level 4.6 Chloride Level 114 Carbon Dioxide Level 26.4 Anion Gap 5 Estimat Glomerular Filtration Rate 47 Protein Corrected Calcium 8.1 Test 04/18/17 19:55 04/19/17 03:47 Blood Gas Puncture Site RT RADIAL Blood Gas Patient Temperature 98.6 Blood Gas HCO3 23 Blood Gas Base Excess -0.6 Blood Gas Oxygen Saturation 96 Arterial Blood pH 7.42 Arterial Blood Partial Pressure CO2 37 Arterial Blood Partial Pressure O2 106 Arterial Blood Oxygen Content 14.9 Arterial Blood Carboxyhemoglobin 0.9 Arterial Blood Methemoglobin 1.4 Blood Gas Hemoglobin 10.9 Oxygen Delivery Device VENTILATOR Blood Gas Ventilator Setting PC/AC Blood Gas Inspired Oxygen 100 White Blood Count 14.4 Red Blood Count 3.44 Hemoglobin 10.4 Hematocrit 31.5 Mean Corpuscular Volume 91.7 Mean Corpuscular Hemoglobin 30.2 Mean Corpuscular Hemoglobin Concent 32.9 Red Cell Distribution Width 13.4 Platelet Count 159 Mean Platelet Volume 9.3 Neutrophils (%) (Auto) 89.6 Lymphocytes (%) (Auto) 3.2 Monocytes (%) (Auto) 7.1 Eosinophils (%) (Auto) 0.0 Basophils (%) (Auto) 0.1 Neutrophils # (Auto) 12.9 Lymphocytes # (Auto) 0.5 Monocytes # (Auto) 1.0 Eosinophils # (Auto) 0.0 Basophils # (Auto) 0.0 CBC Comment DIFF FINAL Differential Comment Blood Urea Nitrogen 18 Creatinine 1.51 Random Glucose 168 Total Protein 5.2 Albumin 1.9 Calcium Level 7.1 Magnesium Level 1.7 Alkaline Phosphatase 40 Aspartate Amino Transf (AST/SGOT) 64 Alanine Aminotransferase (ALT/SGPT) 18 Total Bilirubin 1.1 Sodium Level 144 Potassium Level 3.0 Chloride Level 111 Carbon Dioxide Level 25.1 Anion Gap 8 Estimat Glomerular Filtration Rate 36 Protein Corrected Calcium 8.1 Date/Time Source Procedure Growth Status 04/18/17 10:30 Blood Peripheral Aerobic Blood Culture Pending Received 04/18/17 10:30 Blood Peripheral Anaerobic Blood Culture Pending Received 04/18/17 20:00 Sputum Endotracheal Gram Stain Pending Received 04/18/17 20:00 Sputum Endotracheal Sputum Culture Pending Received 04/17/17 07:50 Urine Clean Catch Urine Culture - Preliminary Gram Negative Chilo Resulted Imaging Last 48 hours Impressions Chest X-Ray 04/19/17 0600 Signed Impressions: Service Date/Time: Wednesday, April 19, 2017 03:29 - CONCLUSION: 1. Improving bilateral infiltrates. 2. The side-port of the gastric tube is above the level of the diaphragm and needs to be advanced approximately 2 cm. Bairon Villela MD Chest X-Ray 04/18/17 1358 Signed Impressions: Service Date/Time: Tuesday, April 18, 2017 14:14 - CONCLUSION: Basilar airspace disease with small effusions. Findings similar to earlier exam. Andrade Hester MD Chest X-Ray 04/18/17 0000 Signed Impressions: Service Date/Time: Tuesday, April 18, 2017 18:17 - CONCLUSION: Endotracheal tube in good position. Air space disease similar to prior exam. Andrade Hester MD Chest X-Ray 04/18/17 0000 Signed Impressions: Service Date/Time: Tuesday, April 18, 2017 08:38 - CONCLUSION: 1. NGT beyond the GE junction. 2. Bilateral lower lung zone airspace disease which may reflect atelectasis. Although aspiration and pneumonia cannot be excluded in the appropriate clinical setting. Alex Bridges MD Assessment and Plan Plan POD#2 s/p ABF, reintubated 1. Wean vent 2. Likely start diuresis tomorrow - recheck BMP later today 3. Continue antibiotics for UTI Discharge Planning 5-7 days s.o [phone] Jesse Anaya MD Apr 19, 2017 07:57
[2017-04-19] MEDS ORDERED: MAGNESIUM SULFATE 1 GM PREMIX 100 ML IV ONE (08:00)
--- NOTE | 2017-04-19 08:13 | HHI.CCPN ---
Subjective Remarks/Hospital Course Patient is a 56-year-old white female with past medical history of severe peripheral arterial disease, severe aortoiliac occlusive disease, coronary artery disease, hypertension, COPD who has significant claudication history, and history of failed fem-fem bypass. Patient underwent aortobifem bypass with 14x7 Dacron, right and left SIGNS AND DISPLAYS SALESPERSON/PFA endarterectomy and patch. EBL 600 ml, IVF 3.6 L. I evaluated the patient in the ICU postop. Good urine output. Complaints of severe pain. RN getting ready to give morphine-tolerated in the OR 04/18: Urine output marginal 20 mL per KG per hour overnight, borderlin hypotensive. Received total 3 L normal saline boluses. Creatinine has increased from 0.85-1.5. ABG shows metabolic acidosis pH 7.2 PCO2 44 PO2 60 base excess -10. Additional 1 L fluid bolus ordered. 2 Amps of bicarbonate and change maintenance IV fluid to bicarbonate infusion at 150 ML per hour. Chest x-ray pending. Increasing oxygen requirement now requiring 6 L/h. Check lactic acid. Did discuss with Dr. Anaya. Continue aggressive fluid resuscitation. Hold Lisinopril, reduce metoprolol to 25 q12. UTI with E Coli /. Bactrim started by Dr. Anaya- change to Azactam 1gm IV q12 04/19: Underwent aggressive fluid resuscitation yesterday for oliguria and increased creatinine. By the end of the day patient was severely hypoxemic due to's bilateral atelectasis and some fluid overload.. Unable to oxygenate adequately with high BiPAP settings and 100% FiO2. Patient intubated and placed on PC/AC initially required high inspiratory pressure to get tidal volume of 500. Eventually overnight lung compliance improved. Now inspiratory pressure is down to 20 from 32 yesterday, getting good tidal volumes, FiO2 had been weaned down to 45%. Overnight urine output excellent. Creatinine bumped to 1.5 from 1.2. Will continue aggressive fluid resuscitation while the patient is ventilated Objective Vital Signs Date Time Temp Pulse Resp B/P (MAP) Pulse Ox O2 Delivery O2 Flow Rate FiO2 04/19/17 06:00 16 04/19/17 04:13 99 45 04/19/17 03:00 109 04/19/17 03:00 99.9 100/73 (82) 04/18/17 08:29 Nasal Cannula 6.00 Intake and Output 04/19/17 04/19/17 04/20/17 08:00 16:00 00:00 Intake Total 1207 ml Output Total 1505 ml Balance -298 ml Result Diagram: 04/19/17 0347 04/19/17 0347 Other Results Laboratory Tests Test 04/18/17 11:56 04/18/17 19:55 Blood Gas Puncture Site KAMAR RT RADIAL Blood Gas Patient Temperature 98.6 98.6 Blood Gas HCO3 21 mmol/L (22-26) 23 mmol/L (22-26) Blood Gas Base Excess -4.1 mmol/L (-2-2) -0.6 mmol/L (-2-2) Blood Gas Oxygen Saturation 90 % (90-100) 96 % (90-100) Arterial Blood pH 7.29 (7.380-7.420) 7.42 (7.380-7.420) Arterial Blood Partial Pressure CO2 46 mmHg (38-42) 37 mmHg (38-42) Arterial Blood Partial Pressure O2 64 mmHg (61-120) 106 mmHg (61-120) Arterial Blood Oxygen Content 13.4 Vol % (12.0-20.0) 14.9 Vol % (12.0-20.0) Arterial Blood Carboxyhemoglobin 1.2 % (0-4) 0.9 % (0-4) Arterial Blood Methemoglobin 1.5 % (0-2) 1.4 % (0-2) Blood Gas Hemoglobin 10.6 G/DL (12.0-16.0) 10.9 G/DL (12.0-16.0) Oxygen Delivery Device SIMPLE MASK VENTILATOR Blood Gas Liter Flow 8 L/M Blood Gas Ventilator Setting PC/AC Blood Gas Inspired Oxygen 100 % Objective Remarks GEN: 56 yo female, lying in bed, intubated, mildly sedated HEENT: NC/AT. BENITA. Neck: no jvd. trachea midline. Chest: Air entry equal bilaterally, but diminished with mild expiratory wheezing. On vent PC/AC CV: Sinus tachycardia. No murmur. GI: Abdominal binder in place, abdomen tender but soft, midline vertical incision CDI. Mild erythema surrounding incision EXT: Bilateral groins with Prevena wound vac dressing. DP/PT +ve by Doppler bilaterally Neuro: Alert awake following commands on the vent A/P Assessment and Plan ASSESSMENT: s/p Aortobifemoral bypass Acute hypoxemic respiratory failure Hypotension/tachycardia Intravascular volume depletion SIRS UTI Acute kidney injury Probable sepsis COPD with exacerbation Severe PAD Coronary artery disease Hypertension Dyslipidemia Tobacco abuse PLAN: NEURO: - Propofol and fentanyl for sedation and vent synchrony - Daily sedation vacation RESP: - PC/AC Pinsp 20, iT 1.2, PEEP 8. FiO2 40% - CPAP trial without extubation - DuoNeb every 4 hours scheduled and PRN - IV Solumedrol 60 q12 for COPD with exacerbation- reduce to 40 q12 - Empiric antibiotics as below CV: - Patient remains some what under resuscitated, intravascularly volume depleted - Status post 5 L crystalloid boluses yesterday - Give additional 250 mL normal saline bolus and change IV fluid to half-normal saline with 40 of K at 150 ML per hour - Postop management per Dr. Anaya - Continue metoprolol, after low-dose 25 mg twice a day, hold lisinopril - Continue Lipitor - Start aspirin today GI: - NPO, NGT - IV famotidine for GI prophylaxis : - Monitor renal function closely. Maintain urine output more than 0.5 ml per kg per hour - Continue aggressive fluid resuscitation given acute kidney injury, creat increased from 1.2 to 1.5 - Repeat CMP in the afternoon ID: - Preop UTI with Escherichia coli, repeat culture GNR - Continue Azactam 1 g every 12 - Check blood cultures, sputum culture HEME: - Monitor CBC, CMP ENDO: - Electrolyte replacement per protocol PROPH: - IV famotidine, Lovenox subcutaneous daily from 04/18/17 CCT 35 MIN With aggressive fluid resuscitation and with probable COPD exacerbation developed severe hypoxemic respiratory failure refractory to high BiPAP setting and 100% oxygen. Intubated yesterday evening at about 6 PM currently improved lung compliance FiO2 reduced to 45%. Remains critically ill with acute kidney injury and hypoxemic respiratory failure but steadily improving Sreedhar Oscar MD Apr 19, 2017 08:13
[2017-04-19] MEDS: POTASSIUM CHLOR 20 MEQ PREMIX 100 ML IV SCH ×2 (08:17→11:24)
[2017-04-19] MEDS: CHLORHEXIDINE 0.12% (ORAL KIT) 15 ML CUP MT SCH ×2 (08:55→20:00)
[2017-04-19] MEDS: FLUTICASONE PROPIONATE 44 MCG/ACT 10.6 GM INHALER INH SCH ×2 (09:00→21:00)
[2017-04-19] MEDS: SULFAMETHOXAZOLE-TRIMETHOPRIM 400-80 MG TAB PO SCH (09:00)
[2017-04-19] MEDS: INSULIN ASPART SUPPLEMENTAL SCALE SQ SCH ×4 (09:31→20:35)
[2017-04-19] MEDS: METOPROLOL TARTRATE 50 MG TAB PO SCH ×2 (09:33→20:33)
[2017-04-19] MEDS: ASPIRIN 81 MG CHEW TAB PO SCH (09:33)
[2017-04-19] MEDS: FAMOTIDINE 20 MG/2 ML VIAL IV PUSH SCH ×2 (09:33→20:33)
[2017-04-19] MEDS: AZTREONAM INJ 1,000 MG in SODIUM CHLORIDE 0.9% INJ 100 ML IV SCH ×2 (09:33→20:34)
[2017-04-19] MEDS: POTASSIUM CHLORIDE INJ 40 MEQ in SODIUM CHLOR 0.45% 1000 ML INJ 1,000 ML IV SCH ×2 (12:46→20:02)
[2017-04-19] MEDS: methylPREDNISolone SOD SUCC 40 MG/1 ML VIAL IV PUSH SCH (14:12)
[2017-04-19] MEDS: ENOXAPARIN SODIUM 30 MG/0.3 ML SYRINGE SQ SCH (14:13)
[2017-04-19 18:03] LABS: ALBUMIN 1.9 GM/DL (3.4-5.0); BICARBONATE 26.8 MEQ/L (21.0-32.0); CALCIUM 7.3 MG/DL (8.5-10.1); CALCIUM-PROTEIN CORRECTED 8.3 MG/DL (8.5-10.1); CREATININE 1.17 MG/DL (0.50-1.00); MAGNESIUM 2.2 MG/DL (1.5-2.5); TOTAL BILIRUBIN ADULT 1.1 MG/DL (0.2-1.0); TOTAL PROTEIN 5.3 GM/DL (6.4-8.2)
[2017-04-19] MEDS: fentaNYL 2,500 MCG/NS 250 ML IV PRN (19:02)
[2017-04-19] MEDS ORDERED: SODIUM CHLORID 0.9% 500 ML INJ 500 ML IV ONE (19:30)
[2017-04-19] MEDS: ATORVASTATIN 40 MG TAB PO SCH (20:33)
[2017-04-20] VITALS (18 sets, daily range): BP systolic 124–143; BP diastolic 77–84; PULSE 75–107; RESP 20–23; TEMP 97.8–98.8; O2SAT 91–99
[2017-04-20] MEDS: RESP: ALBUTEROL 2.5 MG/IPRATROPIUM 0.5 MG NEB (SCH) NEB ×6 (00:24→20:09)
[2017-04-20] MEDS: POTASSIUM CHLORIDE INJ 40 MEQ in SODIUM CHLOR 0.45% 1000 ML INJ 1,000 ML IV SCH (01:49)
[2017-04-20] MEDS: methylPREDNISolone SOD SUCC 40 MG/1 ML VIAL IV PUSH SCH ×2 (01:49→14:30)
[2017-04-20 04:11] LABS: AUTOMATED NEUTROPHIL # 13.2 TH/MM3 (1.8-7.7); BASOPHIL % 0.1 % (0.0-2.0); HEMATOCRIT 30.5 % (35.0-46.0); HEMOGLOBIN 10.2 GM/DL (11.6-15.3); LYMPH % 3.7 % (9.0-44.0); LYMPHOCYTE # 0.5 TH/MM3 (1.0-4.8); MEAN CORPUSCULAR HEMOGLOBIN 30.7 PG (27.0-34.0); MEAN CORPUSCULAR HGB CONC 33.4 % (32.0-36.0); MONO % 4.9 % (0.0-8.0); MONOCYTE # 0.7 TH/MM3 (0-0.9); NEUT % 91.3 % (16.0-70.0); PLATELET COUNT 154 TH/MM3 (150-450); RED BLOOD COUNT 3.32 MIL/MM3 (4.00-5.30); RED CELL DISTRIBUTION WIDTH 13.3 % (11.6-17.2); WHITE BLOOD COUNT 14.5 TH/MM3 (4.0-11.0)
[2017-04-20 04:32] LABS: ALBUMIN 1.7 GM/DL (3.4-5.0); CALCIUM 6.7 MG/DL (8.5-10.1); CALCIUM-PROTEIN CORRECTED 7.6 MG/DL (8.5-10.1); CREATININE 0.88 MG/DL (0.50-1.00); MAGNESIUM 2.2 MG/DL (1.5-2.5); TOTAL BILIRUBIN ADULT 0.9 MG/DL (0.2-1.0); TOTAL PROTEIN 5.3 GM/DL (6.4-8.2)
--- NOTE | 2017-04-20 05:08 | RADRPT ---
EXAM DATE/TIME: 04/20/2017 04:02 [facility] COMPARISON: CHEST SINGLE AP, April 19, 2017, 3:29. INDICATIONS : Shortness of breath, possible pulmonary disease. MEDICAL HISTORY : Cardiovascular disease. SURGICAL HISTORY : CABG. ENCOUNTER: Subsequent ACUITY: 1 week PAIN SCORE: 0/10 LOCATION: Bilateral chest FINDINGS: ET tube tip is 1 cm above the ruben. Gastric tube tip and side-port project within the stomach. Si gnificant increase of bilateral airspace opacities involving upper and lower lung zones. Both hemidi aphragms remain well delineated. CONCLUSION: 1. ET tube tip 1 cm above the ruben and needs to be withdrawn at least 1 cm. 2. Increasing bilateral airspace opacities. Bairon Villela MD on April 20, 2017 at 5:04 Board Certified Radiologist. This report was verified electronically.
[2017-04-20] MEDS ORDERED: ALBUMIN 25% INJ 100 ML IV ONE (06:45)
[2017-04-20] MEDS ORDERED: FUROSEMIDE 40 MG/4 ML VIAL IV PUSH ONE (06:45)
--- NOTE | 2017-04-20 07:25 | PD.VS.PN ---
Subjective POD #: 3 Procedure(s): ABF with bilateral groin reconstructions Subjective/Hospital Course weaning vent she is alert and c/o anterior thigh numbness feet ok Objective Vitals/I&O Date Time Temp Pulse Resp B/P (MAP) Pulse Ox O2 Delivery O2 Flow Rate FiO2 04/20/17 04:11 99 35 04/20/17 03:00 30 04/20/17 03:00 98.3 75 20 124/80 (95) 98 04/20/17 03:00 75 04/20/17 00:48 99 35 04/19/17 23:00 30 04/19/17 23:00 94 04/19/17 23:00 98.7 94 16 125/74 (91) 98 04/19/17 22:15 99 35 04/19/17 20:27 99 35 04/19/17 19:00 89 04/19/17 19:00 40 04/19/17 19:00 98.5 89 16 122/79 (93) 97 04/19/17 15:47 99 40 04/19/17 15:00 40 04/19/17 15:00 77 04/19/17 15:00 98.4 77 16 122/76 (91) 99 04/19/17 14:04 99 40 04/19/17 12:40 40 04/19/17 12:40 99 40 04/19/17 11:25 99 40 04/19/17 11:00 98.7 76 16 108/60 (76) 99 04/19/17 11:00 40 04/19/17 11:00 81 04/19/17 08:29 99 40 04/20/17 04/20/17 04/20/17 07:00 15:00 23:00 Intake Total 2578 ml Output Total 520 ml Balance 2058 ml Exam: intubated but MCCLAIN and alert good sats groins covered with Provena abdominal incision ok palpable DP bilaterally Laboratory Laboratory Tests Test 04/19/17 17:15 04/20/17 03:50 Blood Urea Nitrogen 19 21 Creatinine 1.17 0.88 Random Glucose 115 97 Total Protein 5.3 5.3 Albumin 1.9 1.7 Calcium Level 7.3 6.7 Magnesium Level 2.2 2.2 Alkaline Phosphatase 47 48 Aspartate Amino Transf (AST/SGOT) 61 51 Alanine Aminotransferase (ALT/SGPT) 21 23 Total Bilirubin 1.1 0.9 Sodium Level 143 142 Potassium Level 4.2 4.5 Chloride Level 109 113 Carbon Dioxide Level 26.8 22.0 Anion Gap 7 7 Estimat Glomerular Filtration Rate 48 66 Protein Corrected Calcium 8.3 7.6 White Blood Count 14.5 Red Blood Count 3.32 Hemoglobin 10.2 Hematocrit 30.5 Mean Corpuscular Volume 92.0 Mean Corpuscular Hemoglobin 30.7 Mean Corpuscular Hemoglobin Concent 33.4 Red Cell Distribution Width 13.3 Platelet Count 154 Mean Platelet Volume 9.0 Neutrophils (%) (Auto) 91.3 Lymphocytes (%) (Auto) 3.7 Monocytes (%) (Auto) 4.9 Eosinophils (%) (Auto) 0.0 Basophils (%) (Auto) 0.1 Neutrophils # (Auto) 13.2 Lymphocytes # (Auto) 0.5 Monocytes # (Auto) 0.7 Eosinophils # (Auto) 0.0 Basophils # (Auto) 0.0 CBC Comment DIFF FINAL Differential Comment Date/Time Source Procedure Growth Status 04/18/17 10:30 Blood Peripheral Aerobic Blood Culture - Preliminary NO GROWTH IN 1 DAY Resulted 04/18/17 10:30 Blood Peripheral Anaerobic Blood Culture - Preliminary NO GROWTH IN 1 DAY Resulted 04/18/17 20:00 Sputum Endotracheal Gram Stain - Final Resulted 04/18/17 20:00 Sputum Endotracheal Sputum Culture - Preliminary No growth. Resulted 04/17/17 07:50 Urine Clean Catch Urine Culture - Final Escherichia Coli Complete Assessment and Plan Plan POD#3 s/p ABF, reintubated; ABF patent with palpable pulses B DP 1. Wean vent 2. Start diuresis - ok to decrease MIVF 3. Once extubated, OOB TC and D/C NGT Discharge Planning 5-7 days s.o [phone] Jesse Anaya MD Apr 20, 2017 07:25
[2017-04-20] MEDS: INSULIN ASPART SUPPLEMENTAL SCALE SQ SCH ×4 (07:49→21:00)
[2017-04-20] MEDS: CHLORHEXIDINE 0.12% (ORAL KIT) 15 ML CUP MT SCH ×2 (08:00→20:00)
--- NOTE | 2017-04-20 08:35 | HHI.CCPN ---
Subjective Remarks/Hospital Course Patient is a 56-year-old white female with past medical history of severe peripheral arterial disease, severe aortoiliac occlusive disease, coronary artery disease, hypertension, COPD who has significant claudication history, and history of failed fem-fem bypass. Patient underwent aortobifem bypass with 14x7 Dacron, right and left ACCOUNTING ASSISTANT/PFA endarterectomy and patch. EBL 600 ml, IVF 3.6 L. I evaluated the patient in the ICU postop. Good urine output. Complaints of severe pain. RN getting ready to give morphine-tolerated in the OR 04/18: Urine output marginal 20 mL per KG per hour overnight, borderlin hypotensive. Received total 3 L normal saline boluses. Creatinine has increased from 0.85-1.5. ABG shows metabolic acidosis pH 7.2 PCO2 44 PO2 60 base excess -10. Additional 1 L fluid bolus ordered. 2 Amps of bicarbonate and change maintenance IV fluid to bicarbonate infusion at 150 ML per hour. Chest x-ray pending. Increasing oxygen requirement now requiring 6 L/h. Check lactic acid. Did discuss with Dr. Anaya. Continue aggressive fluid resuscitation. Hold Lisinopril, reduce metoprolol to 25 q12. UTI with E Coli /. Bactrim started by Dr. Anaya- change to Azactam 1gm IV q12 04/19: Underwent aggressive fluid resuscitation yesterday for oliguria and increased creatinine. By the end of the day patient was severely hypoxemic due to's bilateral atelectasis and some fluid overload.. Unable to oxygenate adequately with high BiPAP settings and 100% FiO2. Patient intubated and placed on PC/AC initially required high inspiratory pressure to get tidal volume of 500. Eventually overnight lung compliance improved. Now inspiratory pressure is down to 20 from 32 yesterday, getting good tidal volumes, FiO2 had been weaned down to 45%. Overnight urine output excellent. Creatinine bumped to 1.5 from 1.2. Will continue aggressive fluid resuscitation while the patient is ventilated 04/20: Patient appears well resuscitated. Creatinine is down to 0.8.. Chest x- ray shows bilateral interstitial infiltrates. Stop IV fluids and give Lasix 40 mg 1. If adequate diuresis, will start weaning trials Objective Vital Signs Date Time Temp Pulse Resp B/P (MAP) Pulse Ox O2 Delivery O2 Flow Rate FiO2 04/20/17 08:00 30 1/25/18 08:00 98.2 103 20 136/77 (96) 98 04/18/17 08:29 Nasal Cannula 6.00 Intake and Output 04/20/17 04/20/17 04/21/17 08:00 16:00 00:00 Intake Total 2578 ml Output Total 520 ml Balance 2058 ml Result Diagram: 04/20/17 0350 04/20/17 0350 Objective Remarks GEN: 56 yo female, lying in bed, intubated, off sedation HEENT: NC/AT. BENITA. Neck: no JVD. trachea midline. Chest: Air entry equal bilaterally, but diminished with mild rales. On vent PC/ AC CV: Sinus tachycardia. No murmur. GI: Abdominal binder in place, abdomen tender but soft, midline vertical incision CDI. Mild erythema surrounding incision EXT: Bilateral groins with Prevena wound vac dressing. DP/PT +ve by Doppler bilaterally Neuro: Alert awake following commands on the vent A/P Assessment and Plan ASSESSMENT: s/p Aortobifemoral bypass Acute hypoxemic respiratory failure Hypotension/tachycardia Intravascular volume depletion SIRS UTI Acute kidney injury Sepsis COPD with exacerbation Severe PAD Coronary artery disease Hypertension Dyslipidemia Tobacco abuse PLAN: NEURO: - Propofol and fentanyl for sedation and vent synchrony - Sedation vacation RESP: - PC/AC Pinsp 20, iT 1.2, PEEP 5. FiO2 35% - CPAP trial with possible extubation - DuoNeb every 4 hours scheduled and PRN - IV Solumedrol 40 q12 for COPD with exacerbation- reduce to 20 q12, continue Flovent - Empiric antibiotics as below CV: - Patient appears adequately resuscitated now. Discontinue IV fluids - IV Lasix 40 mg 1 based on chest x-ray showing bilateral infiltrates - Postop management per Dr. Anaya - Continue metoprolol, after low-dose 25 mg twice a day, hold lisinopril - Continue Lipitor - Aspirin daily GI: - NPO, NGT - IV famotidine for GI prophylaxis : - Monitor renal function closely. Maintain urine output more than 0.5 ml per kg per hour - IV Lasix as above - Repeat CMP in the afternoon ID: - Preop UTI with Escherichia coli, repeat culture E Coli S to Azactam (PCN allergic) - Continue Azactam 1 g every 12 HEME: - Monitor CBC, CMP ENDO: - Electrolyte replacement per protocol PROPH: - IV famotidine, Lovenox subcutaneous daily from 04/18/17 Level 3 Adequately resuscitated creatinine has normalized. Chest x-ray showing evidence of fluid overload now. DC IV fluid start IV Lasix. Possible extubation today Sreedhar Oscar MD Apr 20, 2017 08:35
[2017-04-20] MEDS: AZTREONAM INJ 1,000 MG in SODIUM CHLORIDE 0.9% INJ 100 ML IV SCH ×2 (09:00→20:39)
[2017-04-20] MEDS: FLUTICASONE PROPIONATE 44 MCG/ACT 10.6 GM INHALER INH SCH ×2 (09:00→20:39)
[2017-04-20] MEDS: METOPROLOL TARTRATE 50 MG TAB PO SCH ×2 (09:37→20:38)
[2017-04-20] MEDS: ASPIRIN 81 MG CHEW TAB PO SCH (09:37)
[2017-04-20] MEDS: FAMOTIDINE 20 MG/2 ML VIAL IV PUSH SCH ×2 (09:37→20:38)
[2017-04-20] MEDS ORDERED: CALCIUM GLUCONATE INJ 1 GM in DEXTROSE 5% IN WATER 100ML INJ 100 ML IV ONE ×2 (10:00)
[2017-04-20] MEDS: ENOXAPARIN SODIUM 30 MG/0.3 ML SYRINGE SQ SCH (14:31)
[2017-04-20 16:03] LABS: ALBUMIN 2.3 GM/DL (3.4-5.0); BICARBONATE 24.7 MEQ/L (21.0-32.0); CALCIUM 7.4 MG/DL (8.5-10.1); CREATININE 0.94 MG/DL (0.50-1.00)
[2017-04-20 16:07] LABS: CALCIUM-PROTEIN CORRECTED 8.1 MG/DL (8.5-10.1); TOTAL BILIRUBIN ADULT 0.8 MG/DL (0.2-1.0); TOTAL PROTEIN 5.9 GM/DL (6.4-8.2)
[2017-04-20] MEDS ORDERED: FUROSEMIDE 20 MG/2 ML VIAL IV PUSH ONE (17:30)
--- NOTE | 2017-04-20 18:07 | ECHRPT ---
Indication: Shortness of breath CONCLUSIONS The left ventricular systolic function is normal with an estimated ejection fraction in the range of 55-60%. Wall thickness is normal. Normal left ventricular size. There is moderate to severe tricuspid valve regurgitation. The estimated pulmonary arterial pressure is 41.4 mmHg. BP: 124 / 80 HR: 93 Rhythm: Sinus MEASUREMENTS (Male / Female) Normal Values Technical Quality:Good 2D ECHO LV Diastolic Diameter PLAX 4.2 cm 4.2 - 5.9 / 3.9 - 5.3 cm LV Systolic Diameter PLAX 3.1 cm IVS Diastolic Thickness 0.9 cm 0.6 - 1.0 / 0.6 - 0.9 cm LVPW Diastolic Thickness 0.9 cm 0.6 - 1.0 / 0.6 - 0.9 cm LV Relative Wall Thickness 0.4 LVOT Diameter 1.9 cm M-MODE Aortic Root Diameter MM 2.3 cm LA Systolic Diameter MM 3.9 cm LA Ao Ratio MM 1.7 AV Cusp Separation MM 1.7 cm DOPPLER AV Peak Velocity 153.0 cm/s AV Peak Gradient 9.4 mmHg LVOT Peak Velocity 119.0 cm/s LVOT Peak Gradient 5.7 mmHg AV Area Cont Eq pk 2.2 cm Mitral E Point Velocity 110.0 cm/s Mitral A Point Velocity 90.8 cm/s Mitral E to A Ratio 1.2 LV E' Lateral Velocity 13.6 cm/s Mitral E to LV E' Lateral Ratio 8.1 LV E' Septal Velocity 10.1 cm/s Mitral E to LV E' Septal Ratio 10.9 TR Peak Velocity 280.0 cm/s TR Peak Gradient 31.4 mmHg Right Atrial Pressure 10.0 mmHg Pulmonary Artery Systolic Pressu 41.4 mmHg Right Ventricular Systolic Press 41.4 mmHg PV Peak Velocity 134.0 cm/s PV Peak Gradient 7.2 mmHg FINDINGS LEFT VENTRICLE The left ventricular systolic function is normal with an estimated ejection fraction in the range of 55-60%. Wall thickness is normal. Normal left ventricular size. RIGHT VENTRICLE Normal right ventricular size and systolic function. LEFT ATRIUM The left atrial size is normal. RIGHT ATRIUM The right atrial size is normal. ATRIAL SEPTUM Normal atrial septal thickness without atrial level shunting by limited color doppler interrogation. AORTA The aortic root and proximal ascending aorta are normal in size on limited imaging. MITRAL VALVE Structurally normal mitral valve. No mitral valve stenosis or regurgitation. AORTIC VALVE Trileaflet aortic valve. No aortic valve stenosis or regurgitation. TRICUSPID VALVE There is moderate to severe tricuspid valve regurgitation. The estimated pulmonary arterial pressure is 41.4 mmHg. PULMONARY VALVE No pulmonary valve regurgitation or stenosis. VESSELS The inferior vena cava is normal in size. PERICARDIUM No pericardial effusion. Tanner Saleh MD (Electronically Signed) Final Date:20 April 2017 18:06
[2017-04-20] MEDS: ATORVASTATIN 40 MG TAB PO SCH (20:39)
[2017-04-21] VITALS (10 sets, daily range): BP systolic 123–148; BP diastolic 54–83; PULSE 72–99; RESP 16–20; TEMP 98.1–98.4; O2SAT 92–99
[2017-04-21] MEDS: RESP: ALBUTEROL 2.5 MG/IPRATROPIUM 0.5 MG NEB (SCH) NEB ×3 (00:03→07:31)
[2017-04-21] MEDS: fentaNYL 2,500 MCG/NS 250 ML IV PRN (02:33)
[2017-04-21] MEDS: methylPREDNISolone SOD SUCC 40 MG/1 ML VIAL IV PUSH SCH ×2 (02:33→13:27)
[2017-04-21 04:09] LABS: AUTOMATED NEUTROPHIL # 16.6 TH/MM3 (1.8-7.7); BASOPHIL % 0.1 % (0.0-2.0); HEMATOCRIT 29.6 % (35.0-46.0); HEMOGLOBIN 9.9 GM/DL (11.6-15.3); LYMPH % 2.1 % (9.0-44.0); LYMPHOCYTE # 0.4 TH/MM3 (1.0-4.8); MEAN CELL VOLUME 92.4 FL (80.0-100.0); MEAN CORPUSCULAR HEMOGLOBIN 30.9 PG (27.0-34.0); MEAN CORPUSCULAR HGB CONC 33.4 % (32.0-36.0); MEAN PLATELET VOLUME 8.3 FL (7.0-11.0); MONO % 5.5 % (0.0-8.0); NEUT % 92.3 % (16.0-70.0); PLATELET COUNT 216 TH/MM3 (150-450); RED CELL DISTRIBUTION WIDTH 13.7 % (11.6-17.2); WHITE BLOOD COUNT 17.9 TH/MM3 (4.0-11.0)
[2017-04-21 04:35] LABS: ALBUMIN 2.2 GM/DL (3.4-5.0); AST (GOT) 35 U/L (15-37); BICARBONATE 22.3 MEQ/L (21.0-32.0); BLOOD UREA NITROGEN 28 MG/DL (7-18); CALCIUM 7.5 MG/DL (8.5-10.1); CHLORIDE 111 MEQ/L (98-107); CREATININE 0.84 MG/DL (0.50-1.00); GLOMERULAR FILTRATION RATE 70 ML/MIN (>89); GLUCOSE,RANDOM 90 MG/DL (74-106); SODIUM (NA) 144 MEQ/L (136-145)
[2017-04-21 04:39] LABS: ALKALINE PHOSPHATASE 48 U/L (45-117); ALT (GPT) 24 U/L (10-53); TOTAL BILIRUBIN ADULT 0.7 MG/DL (0.2-1.0)
--- NOTE | 2017-04-21 05:41 | RADRPT ---
EXAM DATE/TIME: 04/21/2017 04:12 [facility] COMPARISON: CHEST SINGLE AP, April 20, 2017, 4:02. INDICATIONS : Respiratory failure post Femoral Bypass MEDICAL HISTORY : Cardiovascular disease. SURGICAL HISTORY : CABG. ENCOUNTER: Subsequent ACUITY: 1 week PAIN SCORE: Non-responsive. LOCATION: Bilateral chest FINDINGS: ET tube is well placed. The heart size is normal. There is prominence of the interstitium throughout. There is more focal alveolar density at the right base. CONCLUSION: 1. Right base consolidation or atelectasis. 2. Prominence of the interstitium which could represents underlying interstitial disease and/or edema . Dayne Issa MD on April 21, 2017 at 5:37 Board Certified Radiologist. This report was verified electronically.
[2017-04-21] MEDS: INSULIN ASPART SUPPLEMENTAL SCALE SQ SCH ×4 (07:48→21:00)
[2017-04-21] MEDS: CHLORHEXIDINE 0.12% (ORAL KIT) 15 ML CUP MT SCH ×2 (07:48→20:00)
--- NOTE | 2017-04-21 08:03 | PD.VS.PN ---
Subjective POD #: 4 Procedure(s): ABF with bilateral groin reconstructions Subjective/Hospital Course extubated and mild SOB - on FM no flatus yet feet ok getting diuresis Objective Vitals/I&O Date Time Temp Pulse Resp B/P (MAP) Pulse Ox O2 Delivery O2 Flow Rate FiO2 04/21/17 03:00 97 04/21/17 03:00 98.4 97 20 148/54 (85) 98 04/20/17 23:00 97.8 98 23 127/83 (98) 93 04/20/17 23:00 98 04/20/17 21:14 95 Simple Mask 10.00 04/20/17 20:13 95 Nasal Cannula 6.00 04/20/17 19:00 93 04/20/17 19:00 98.8 93 22 143/84 (103) 91 04/20/17 15:29 98.1 103 20 132/82 (99) 98 04/20/17 15:00 107 04/20/17 12:45 94 Nasal Cannula 4.00 04/20/17 12:45 94 Nasal Cannula 4 04/20/17 11:40 98 35 04/20/17 11:35 98.0 92 20 128/78 (95) 98 04/20/17 11:00 90 04/20/17 09:18 35 04/20/17 09:18 99 35 04/20/17 08:58 98 35 04/21/17 04/21/17 04/21/17 07:00 15:00 23:00 Intake Total 329 ml Output Total 1350 ml Balance -1021 ml Exam: neuro intact conversant on FM lower abdominal edema Provenas intact palpable pedal pulses Laboratory Laboratory Tests Test 04/20/17 15:08 04/21/17 03:53 Blood Urea Nitrogen 26 28 Creatinine 0.94 0.84 Random Glucose 88 90 Total Protein 5.9 6.0 Albumin 2.3 2.2 Calcium Level 7.4 7.5 Alkaline Phosphatase 52 48 Aspartate Amino Transf (AST/SGOT) 41 35 Alanine Aminotransferase (ALT/SGPT) 23 24 Total Bilirubin 0.8 0.7 Sodium Level 143 144 Potassium Level 4.2 4.3 Chloride Level 110 111 Carbon Dioxide Level 24.7 22.3 Anion Gap 8 11 Estimat Glomerular Filtration Rate 61 70 Protein Corrected Calcium 8.1 White Blood Count 17.9 Red Blood Count 3.20 Hemoglobin 9.9 Hematocrit 29.6 Mean Corpuscular Volume 92.4 Mean Corpuscular Hemoglobin 30.9 Mean Corpuscular Hemoglobin Concent 33.4 Red Cell Distribution Width 13.7 Platelet Count 216 Mean Platelet Volume 8.3 Neutrophils (%) (Auto) 92.3 Lymphocytes (%) (Auto) 2.1 Monocytes (%) (Auto) 5.5 Eosinophils (%) (Auto) 0.0 Basophils (%) (Auto) 0.1 Neutrophils # (Auto) 16.6 Lymphocytes # (Auto) 0.4 Monocytes # (Auto) 1.0 Eosinophils # (Auto) 0.0 Basophils # (Auto) 0.0 CBC Comment DIFF FINAL Differential Comment Date/Time Source Procedure Growth Status 04/18/17 10:30 Blood Peripheral Aerobic Blood Culture - Preliminary NO GROWTH IN 2 DAYS Resulted 04/18/17 10:30 Blood Peripheral Anaerobic Blood Culture - Preliminary NO GROWTH IN 2 DAYS Resulted 04/18/17 20:00 Sputum Endotracheal Gram Stain - Final Complete 04/18/17 20:00 Sputum Endotracheal Sputum Culture - Final LIGHT GROWTH NORMAL RESPIRATORY KIM Complete 04/17/17 07:50 Urine Clean Catch Urine Culture - Final Escherichia Coli Complete Imaging CXR with R>L infiltrates Assessment and Plan Plan POD#4 s/p ABF, extubated 1. Continue diuresis 2. OOB TC/ambulate 3. AROBF and when + flatus can d/c NGT and adv diet 4. Pain control 5. Continue provenas to B groins Discharge Planning 5-7 days s.o [phone] Jesse Anaya MD Apr 21, 2017 08:03
[2017-04-21] MEDS ORDERED: FUROSEMIDE 20 MG/2 ML VIAL IV PUSH ONE ×2 (09:00→17:00)
[2017-04-21] MEDS: AZTREONAM INJ 1,000 MG in SODIUM CHLORIDE 0.9% INJ 100 ML IV SCH ×2 (09:16→22:21)
[2017-04-21] MEDS: ALBUTEROL SULFATE 90 MCG/ACT HFA 8 GM INHALER INH PRN (09:17)
[2017-04-21] MEDS: FLUTICASONE PROPIONATE 44 MCG/ACT 10.6 GM INHALER INH SCH ×2 (09:17→21:45)
[2017-04-21] MEDS: ASPIRIN 81 MG CHEW TAB PO SCH (09:18)
[2017-04-21] MEDS: FAMOTIDINE 20 MG/2 ML VIAL IV PUSH SCH ×2 (09:18→21:43)
[2017-04-21] MEDS: GABAPENTIN 300 MG CAP PO SCH ×3 (09:18→17:05)
[2017-04-21] MEDS: METOPROLOL TARTRATE 50 MG TAB PO SCH ×2 (09:18→21:44)
[2017-04-21] MEDS: ACETAMINOPHEN 325 MG TAB PO SCH ×3 (09:18→21:44)
[2017-04-21] MEDS: KETOROLAC TROMETHAMINE 30 MG/ML (IVP) VIAL IV PUSH SCH ×2 (11:28→17:05)
[2017-04-21] MEDS: ENOXAPARIN SODIUM 30 MG/0.3 ML SYRINGE SQ SCH (13:27)
[2017-04-21] MEDS ORDERED: METHYLNALTREXONE BROMIDE 12 MG/0.6 ML VIAL SQ ONE (17:00)
--- NOTE | 2017-04-21 17:02 | HHI.CCPN ---
Subjective Remarks/Hospital Course Patient is a 56-year-old white female with past medical history of severe peripheral arterial disease, severe aortoiliac occlusive disease, coronary artery disease, hypertension, COPD who has significant claudication history, and history of failed fem-fem bypass. Patient underwent aortobifem bypass with 14x7 Dacron, right and left PANEL WIRER/PFA endarterectomy and patch. EBL 600 ml, IVF 3.6 L. I evaluated the patient in the ICU postop. Good urine output. Complaints of severe pain. RN getting ready to give morphine-tolerated in the OR 04/18: Urine output marginal 20 mL per KG per hour overnight, borderlin hypotensive. Received total 3 L normal saline boluses. Creatinine has increased from 0.85-1.5. ABG shows metabolic acidosis pH 7.2 PCO2 44 PO2 60 base excess -10. Additional 1 L fluid bolus ordered. 2 Amps of bicarbonate and change maintenance IV fluid to bicarbonate infusion at 150 ML per hour. Chest x-ray pending. Increasing oxygen requirement now requiring 6 L/h. Check lactic acid. Did discuss with Dr. Anaya. Continue aggressive fluid resuscitation. Hold Lisinopril, reduce metoprolol to 25 q12. UTI with E Coli /. Bactrim started by Dr. Anaya- change to Azactam 1gm IV q12 04/19: Underwent aggressive fluid resuscitation yesterday for oliguria and increased creatinine. By the end of the day patient was severely hypoxemic due to's bilateral atelectasis and some fluid overload.. Unable to oxygenate adequately with high BiPAP settings and 100% FiO2. Patient intubated and placed on PC/AC initially required high inspiratory pressure to get tidal volume of 500. Eventually overnight lung compliance improved. Now inspiratory pressure is down to 20 from 32 yesterday, getting good tidal volumes, FiO2 had been weaned down to 45%. Overnight urine output excellent. Creatinine bumped to 1.5 from 1.2. Will continue aggressive fluid resuscitation while the patient is ventilated 04/20: Patient appears well resuscitated. Creatinine is down to 0.8.. Chest x- ray shows bilateral interstitial infiltrates. Stop IV fluids and give Lasix 40 mg 1. If adequate diuresis, will start weaning trials 04/21: continues to complain of severe pain, particularly bilateral groin pain. no ROBF yet, although remains on high dose fentanyl infusion which is likely contributing to her ileus. distal pulses 2+. denies other complaints. Objective Vital Signs Date Time Temp Pulse Resp B/P (MAP) Pulse Ox O2 Delivery O2 Flow Rate FiO2 04/21/17 15:49 20 04/21/17 15:38 98.3 78 138/80 (99) 98 04/20/17 21:14 Simple Mask 10.00 04/20/17 11:40 35 Intake and Output 04/21/17 04/21/17 04/21/17 07:59 15:59 23:59 Intake Total 329 ml Output Total 1350 ml Balance -1021 ml Result Diagram: 04/21/17 0353 04/21/17 0353 Other Results Microbiology Date/Time Source Procedure Growth Status 04/18/17 20:00 Sputum Endotracheal Gram Stain - Final Complete 04/18/17 20:00 Sputum Endotracheal Sputum Culture - Final LIGHT GROWTH NORMAL RESPIRATORY KIM Complete Objective Remarks GEN: 56 yo female, lying in bed, no acute distress. HEENT: NC/AT. BENITA. Neck: no JVD. trachea midline. Chest: Air entry equal bilaterally, NC o2. CV: Sinus tachycardia. GI: Abdominal binder in place, abdomen tender but soft, midline vertical incision CDI. EXT: Bilateral groins with Prevena wound vac dressing. DP/PT +ve Neuro: Alert awake following commands A/P Assessment and Plan ASSESSMENT: s/p Aortobifemoral bypass Acute hypoxemic respiratory failure- resolved. Hypotension/tachycardia- resolved. Intravascular volume depletion- resolved. SIRS- resolving. UTI Acute kidney injury- resolved. Sepsis COPD with exacerbation- resolving. Severe PAD Coronary artery disease Hypertension Dyslipidemia Tobacco abuse Acute intravascular volume overload Acute pulmonary edema Acute on Chronic pain syndrome Post-operative Ileus PLAN: NEURO: - wean fentanyl drip as tolerated. this is likely contributing to her ileus start scheduled tylenol 650mg po q6h given resolution of NICHOLAS, will start lower dose toradol 15mg iv q6h start gabapentin 300mg po TID start tizanidine 2mg po q12h breakthrough prn morphine. RESP: - wean o2 by NC for goal spo2 > 90% - continue forced diuresis: pulmonary edema persists. - DuoNeb every 4 hours scheduled and PRN - IV Solumedrol 20 q12 for COPD with exacerbation, continue Flovent - Empiric antibiotics as below CV: - Patient appears adequately resuscitated now. Discontinue IV fluids - IV Lasix 40 mg 1 based on chest x-ray showing bilateral infiltrates - Postop management per Dr. Anaya - Continue metoprolol, after low-dose 25 mg twice a day, hold lisinopril - Continue Lipitor - Aspirin daily GI: - NPO, NGT. ileus likely complicated by fentanyl drip. will give 1 dose of methylnaltrexone to help inhibit opiate-induced ileus component. await ROBF - IV famotidine for GI prophylaxis : - Monitor renal function closely. Maintain urine output more than 0.5 ml per kg per hour - IV Lasix, increase to 20mg iv q12h. - repeat K this afternoon. ID: - Preop UTI with Escherichia coli, repeat culture E Coli S to Azactam (PCN allergic) - Continue Azactam 1 g every 12, stop date 04/24. HEME: - Monitor CBC, CMP ENDO: - Electrolyte replacement per protocol PROPH: - IV famotidine, Lovenox subcutaneous daily from 04/18/17 Overall Impression: continue in ICU. forced diuresis. pain is a problem: acute- on-chronic pain syndromes. will take a multi-modal approach. Franklin Gonzalez MD Apr 21, 2017 17:02
[2017-04-21] MEDS: ATORVASTATIN 40 MG TAB PO SCH (21:44)
[2017-04-22] VITALS (10 sets, daily range): BP systolic 106–155; BP diastolic 55–88; PULSE 64–95; RESP 16–17; TEMP 98–98.5; O2SAT 94–98
[2017-04-22] MEDS: methylPREDNISolone SOD SUCC 40 MG/1 ML VIAL IV PUSH SCH (01:49)
[2017-04-22] MEDS: ACETAMINOPHEN 325 MG TAB PO SCH ×4 (01:50→20:59)
[2017-04-22] MEDS ORDERED: LABETALOL HCL 100 MG/20 ML VIAL IV PRN (04:15)
[2017-04-22] MEDS: KETOROLAC TROMETHAMINE 30 MG/ML (IVP) VIAL IV PUSH SCH ×5 (05:01→23:56)
--- NOTE | 2017-04-22 07:40 | PD.VS.PN ---
Subjective POD #: 5 Procedure(s): ABF with bilateral groin reconstructions Subjective/Hospital Course continues to improve + flatus yesterday OOB TC and ambulated in room Objective Vitals/I&O Date Time Temp Pulse Resp B/P (MAP) Pulse Ox O2 Delivery O2 Flow Rate FiO2 04/22/17 07:09 19 04/22/17 03:50 19 04/22/17 03:00 98.5 80 16 138/86 (103) 97 04/22/17 03:00 70 04/21/17 23:00 98.3 72 16 123/75 (91) 99 04/21/17 23:00 75 04/21/17 21:02 97 Nasal Cannula 3.00 04/21/17 19:00 98.1 88 18 131/76 (94) 95 04/21/17 19:00 90 04/21/17 15:38 98.3 78 20 138/80 (99) 98 04/21/17 15:00 72 04/21/17 11:08 98.4 94 20 132/80 (97) 95 04/21/17 11:00 99 04/21/17 08:16 98.2 90 18 137/83 (101) 92 04/22/17 04/22/17 04/22/17 07:00 15:00 23:00 Intake Total 100 ml Output Total 980 ml Balance -880 ml Exam: Resting comfortably lower abdomen still edematous palpable pedal pulses Laboratory Laboratory Tests Test 04/21/17 18:08 Potassium Level 4.1 Date/Time Source Procedure Growth Status 04/18/17 10:30 Blood Peripheral Aerobic Blood Culture - Preliminary NO GROWTH IN 3 DAYS Resulted 04/18/17 10:30 Blood Peripheral Anaerobic Blood Culture - Preliminary NO GROWTH IN 3 DAYS Resulted 04/18/17 20:00 Sputum Endotracheal Gram Stain - Final Complete 04/18/17 20:00 Sputum Endotracheal Sputum Culture - Final LIGHT GROWTH NORMAL RESPIRATORY KIM Complete 04/17/17 07:50 Urine Clean Catch Urine Culture - Final Escherichia Coli Complete Assessment and Plan Plan POD#5 s/p ABF, reintubated and now extubated; + flatus; tolerating diuresis 1. Continue diuresis 2. F/U AM BMP, CBB 3. OOB TC/ambulate 4. NGT removed this morning on rounds; may have clear liquids midday 4. Pain control 5. Continue provenas to B groins Discharge Planning likely to [facility] tomorrow and home Mon/ s.o [phone] Jesse Anaya MD Apr 22, 2017 07:40
[2017-04-22] MEDS: CHLORHEXIDINE 0.12% (ORAL KIT) 15 ML CUP MT SCH ×2 (08:00→20:00)
[2017-04-22] MEDS: INSULIN ASPART SUPPLEMENTAL SCALE SQ SCH ×4 (08:00→21:00)
--- NOTE | 2017-04-22 08:26 | HHI.CCPN ---
Subjective Remarks/Hospital Course Patient is a 56-year-old white female with past medical history of severe peripheral arterial disease, severe aortoiliac occlusive disease, coronary artery disease, hypertension, COPD who has significant claudication history, and history of failed fem-fem bypass. Patient underwent aortobifem bypass with 14x7 Dacron, right and left [employer]/PFA endarterectomy and patch. EBL 600 ml, IVF 3.6 L. I evaluated the patient in the ICU postop. Good urine output. Complaints of severe pain. RN getting ready to give morphine-tolerated in the OR 04/18: Urine output marginal 20 mL per KG per hour overnight, borderlin hypotensive. Received total 3 L normal saline boluses. Creatinine has increased from 0.85-1.5. ABG shows metabolic acidosis pH 7.2 PCO2 44 PO2 60 base excess -10. Additional 1 L fluid bolus ordered. 2 Amps of bicarbonate and change maintenance IV fluid to bicarbonate infusion at 150 ML per hour. Chest x-ray pending. Increasing oxygen requirement now requiring 6 L/h. Check lactic acid. Did discuss with Dr. Anaya. Continue aggressive fluid resuscitation. Hold Lisinopril, reduce metoprolol to 25 q12. UTI with E Coli /. Bactrim started by Dr. Anaya- change to Azactam 1gm IV q12 04/19: Underwent aggressive fluid resuscitation yesterday for oliguria and increased creatinine. By the end of the day patient was severely hypoxemic due to's bilateral atelectasis and some fluid overload.. Unable to oxygenate adequately with high BiPAP settings and 100% FiO2. Patient intubated and placed on PC/AC initially required high inspiratory pressure to get tidal volume of 500. Eventually overnight lung compliance improved. Now inspiratory pressure is down to 20 from 32 yesterday, getting good tidal volumes, FiO2 had been weaned down to 45%. Overnight urine output excellent. Creatinine bumped to 1.5 from 1.2. Will continue aggressive fluid resuscitation while the patient is ventilated 04/20: Patient appears well resuscitated. Creatinine is down to 0.8.. Chest x- ray shows bilateral interstitial infiltrates. Stop IV fluids and give Lasix 40 mg 1. If adequate diuresis, will start weaning trials 04/21: continues to complain of severe pain, particularly bilateral groin pain. no ROBF yet, although remains on high dose fentanyl infusion which is likely contributing to her ileus. distal pulses 2+. denies other complaints. 04/22: patient states pain is completely well controlled today. off fentanyl infusion. only on multimodal therapy. does complain of burning in her anterior thighs. +flatus. NGT d/c'd this AM. ROS otherwise negative. Objective Vital Signs Date Time Temp Pulse Resp B/P (MAP) Pulse Ox O2 Delivery O2 Flow Rate FiO2 04/22/17 07:09 19 04/22/17 03:00 98.5 80 138/86 (103) 97 04/21/17 21:02 Nasal Cannula 3.00 04/20/17 11:40 35 Intake and Output 04/22/17 04/22/17 04/22/17 07:59 15:59 23:59 Output Total 980 ml Balance -980 ml Result Diagram: 04/21/17 0353 04/21/17 1808 Objective Remarks GEN: 56 yo female, sitting in a chair, no acute distress. HEENT: NC/AT. BENITA. Neck: no JVD. trachea midline. Chest: unlabored, equal chest rise, 3L NC o2. CV: normal rate, regular rhythm. sinus. GI: Abdominal binder in place, abdomen only mildly tender. soft. EXT: Bilateral groins with Prevena wound vac dressing. distal pulses + Neuro: Alert awake following commands A/P Assessment and Plan ASSESSMENT: Acute hypoxemic respiratory failure- resolved. Hypotension/tachycardia- resolved. Intravascular volume depletion- resolved. SIRS- resolved Acute kidney injury- resolved. Sepsis - resolved. COPD with exacerbation- resolved Severe PAD Coronary artery disease Hypertension Dyslipidemia Tobacco abuse Acute intravascular volume overload - improving. Acute pulmonary edema- improving. Acute on Chronic pain syndrome - improving. Post-operative Ileus - resolving. UTI s/p Aortobifemoral bypass PLAN: NEURO: scheduled tylenol 650mg po q6h given resolution of NICHOLAS, will start lower dose toradol 15mg iv q6h x 3 days total. gabapentin 300mg po TID tizanidine 2mg po q12h breakthrough prn morphine. if groin/leg burning persists, would consider increasing gabapentin to 600mg po TID on 04/23 or 04/24. Would consider sending patient home with 2-4 weeks of gabapentin which will likely alleviate these symptoms. RESP: - wean o2 by NC for goal spo2 > 90% - continue forced diuresis today. still 6kg up from dry weight and 8L + by I/Os. - DuoNeb every 4 hours scheduled and PRN - continue Flovent - start prednisone taper. CV: - IV Lasix 20 mg 1 - Postop management per Dr. Anaya - Continue metoprolol, after low-dose 25 mg twice a day, hold lisinopril - Continue Lipitor - Aspirin daily GI: - advance to clears. await ROBF - IV famotidine for GI prophylaxis : - Monitor renal function closely. - IV Lasix - d/c finch. ID: - Preop UTI with Escherichia coli, repeat culture E Coli S to Azactam (PCN allergic) - Continue Azactam 1 g every 12, stop date 04/24. HEME: - Monitor CBC, CMP ENDO: - Electrolyte replacement per protocol PROPH: - IV famotidine, Lovenox subcutaneous daily from 04/18/17 Overall Impression: clinically improving. pain much better controlled with multimodal therapy. stable for transfer out of ICU. slowly advance diet. continue forced diuresis. Franklin Gonzalez MD Apr 22, 2017 08:26
[2017-04-22] MEDS ORDERED: FUROSEMIDE 20 MG/2 ML VIAL IV PUSH ONE (08:30)
[2017-04-22] MEDS: predniSONE 20 MG TAB PO SCH (09:00)
[2017-04-22] MEDS: METOPROLOL TARTRATE 50 MG TAB PO SCH ×2 (09:00→21:00)
[2017-04-22] MEDS: ASPIRIN 81 MG CHEW TAB PO SCH (09:00)
[2017-04-22] MEDS: FLUTICASONE PROPIONATE 44 MCG/ACT 10.6 GM INHALER INH SCH ×2 (09:00→21:11)
[2017-04-22] MEDS: GABAPENTIN 300 MG CAP PO SCH ×3 (09:00→17:08)
[2017-04-22] MEDS: AZTREONAM INJ 1,000 MG in SODIUM CHLORIDE 0.9% INJ 100 ML IV SCH ×2 (09:00→21:11)
[2017-04-22 10:32] LABS: HEMATOCRIT 29.7 % (35.0-46.0); HEMOGLOBIN 9.9 GM/DL (11.6-15.3); MEAN CELL VOLUME 91.7 FL (80.0-100.0); MEAN CORPUSCULAR HEMOGLOBIN 30.5 PG (27.0-34.0); MEAN CORPUSCULAR HGB CONC 33.3 % (32.0-36.0); MEAN PLATELET VOLUME 8.4 FL (7.0-11.0); PLATELET COUNT 246 TH/MM3 (150-450); RED BLOOD COUNT 3.24 MIL/MM3 (4.00-5.30); RED CELL DISTRIBUTION WIDTH 13.3 % (11.6-17.2); WHITE BLOOD COUNT 12.8 TH/MM3 (4.0-11.0)
[2017-04-22 11:23] LABS: BICARBONATE 24.8 MEQ/L (21.0-32.0); CALCIUM 8.3 MG/DL (8.5-10.1); CREATININE 0.99 MG/DL (0.50-1.00)
[2017-04-22] MEDS: FAMOTIDINE 20 MG/2 ML VIAL IV PUSH SCH ×2 (12:16→21:11)
[2017-04-22] MEDS: ENOXAPARIN SODIUM 30 MG/0.3 ML SYRINGE SQ SCH (13:54)
[2017-04-22] MEDS: ATORVASTATIN 40 MG TAB PO SCH (21:00)
[2017-04-23] VITALS (27 sets, daily range): BP systolic 110–153; BP diastolic 58–84; PULSE 64–92; RESP 16–18; TEMP 97.8–97.9; O2SAT 95–98
[2017-04-23] MEDS: ACETAMINOPHEN 325 MG TAB PO SCH ×4 (03:37→21:19)
[2017-04-23] MEDS: KETOROLAC TROMETHAMINE 30 MG/ML (IVP) VIAL IV PUSH SCH ×3 (06:00→17:23)
--- NOTE | 2017-04-23 07:47 | PD.VS.PN ---
Subjective POD #: 6 Procedure(s): ABF with bilateral groin reconstructions Subjective/Hospital Course haroldo clear liq, hungry voiding OOB and ambulating in room Feet "feel like her feet" again. Objective Vitals/I&O Date Time Temp Pulse Resp B/P (MAP) Pulse Ox O2 Delivery O2 Flow Rate FiO2 04/23/17 07:31 97 21 04/23/17 06:03 65 04/23/17 05:13 66 04/23/17 04:10 67 04/23/17 03:40 97.9 68 17 153/84 (107) 96 04/23/17 03:11 70 04/23/17 02:25 76 04/23/17 01:25 76 04/23/17 00:50 64 04/22/17 23:53 98.0 64 16 106/55 (72) 98 04/22/17 23:53 65 04/22/17 22:04 69 04/22/17 21:26 79 04/22/17 20:15 94 04/22/17 19:35 98.4 95 17 137/69 (91) 97 04/22/17 19:35 82 04/22/17 18:05 72 04/22/17 17:39 16 04/22/17 15:00 70 04/22/17 15:00 98.1 84 16 139/74 (95) 94 04/22/17 10:32 94 Nasal Cannula 1.00 04/22/17 10:30 18 04/22/17 08:00 82 04/22/17 08:00 98.0 82 16 155/88 (110) 95 04/23/17 04/23/17 04/23/17 07:00 15:00 23:00 Intake Total 480 ml Output Total 200 ml Balance 280 ml Exam: Abdominal incision ok B groin Provena in place Palpable DP bilaterally Laboratory Laboratory Tests Test 04/22/17 10:19 04/22/17 10:26 White Blood Count 12.8 Red Blood Count 3.24 Hemoglobin 9.9 Hematocrit 29.7 Mean Corpuscular Volume 91.7 Mean Corpuscular Hemoglobin 30.5 Mean Corpuscular Hemoglobin Concent 33.3 Red Cell Distribution Width 13.3 Platelet Count 246 Mean Platelet Volume 8.4 Blood Urea Nitrogen 38 Creatinine 0.99 Random Glucose 124 Calcium Level 8.3 Sodium Level 142 Potassium Level 4.7 Chloride Level 108 Carbon Dioxide Level 24.8 Anion Gap 9 Estimat Glomerular Filtration Rate 58 Date/Time Source Procedure Growth Status 04/18/17 10:30 Blood Peripheral Aerobic Blood Culture - Preliminary NO GROWTH IN 4 DAYS Resulted 04/18/17 10:30 Blood Peripheral Anaerobic Blood Culture - Preliminary NO GROWTH IN 4 DAYS Resulted 04/18/17 20:00 Sputum Endotracheal Gram Stain - Final Complete 04/18/17 20:00 Sputum Endotracheal Sputum Culture - Final LIGHT GROWTH NORMAL RESPIRATORY KIM Complete 04/17/17 07:50 Urine Clean Catch Urine Culture - Final Escherichia Coli Complete Assessment and Plan Plan POD#6 s/p ABF, reintubated and now extubated; + flatus; tolerating clear liq diet 1. Cardiac diet 2. Reg meds 3. Remove Provenas tomorrow 4. Anticipate d/c tomorrow (POD#7) Discharge Planning home Monday (POD#7) s.o [phone] Jesse Anaya MD Apr 23, 2017 07:47
[2017-04-23] MEDS: INSULIN ASPART SUPPLEMENTAL SCALE SQ SCH ×4 (08:00→21:44)
[2017-04-23] MEDS: CHLORHEXIDINE 0.12% (ORAL KIT) 15 ML CUP MT SCH ×2 (08:00→20:00)
[2017-04-23] MEDS: ASPIRIN 81 MG CHEW TAB PO SCH (08:16)
[2017-04-23] MEDS: predniSONE 20 MG TAB PO SCH (08:16)
[2017-04-23] MEDS: GABAPENTIN 300 MG CAP PO SCH ×3 (08:16→17:23)
[2017-04-23] MEDS: METOPROLOL TARTRATE 50 MG TAB PO SCH ×2 (08:16→21:20)
[2017-04-23] MEDS: FAMOTIDINE 20 MG/2 ML VIAL IV PUSH SCH ×2 (08:17→21:19)
[2017-04-23] MEDS: AZTREONAM INJ 1,000 MG in SODIUM CHLORIDE 0.9% INJ 100 ML IV SCH ×2 (08:17→21:19)
[2017-04-23] MEDS: FLUTICASONE PROPIONATE 44 MCG/ACT 10.6 GM INHALER INH SCH ×2 (08:17→21:20)
[2017-04-23] MEDS: ENOXAPARIN SODIUM 30 MG/0.3 ML SYRINGE SQ SCH (12:31)
[2017-04-23] MEDS: ATORVASTATIN 40 MG TAB PO SCH (21:19)
[2017-04-24] VITALS (14 sets, daily range): BP systolic 146–148; BP diastolic 67–70; PULSE 68–79; RESP 18; TEMP 98.2–98.6; O2SAT 95
[2017-04-24] MEDS: ACETAMINOPHEN 325 MG TAB PO SCH ×2 (03:37→09:11)
[2017-04-24] MEDS: KETOROLAC TROMETHAMINE 30 MG/ML (IVP) VIAL IV PUSH SCH ×2 (05:35)
[2017-04-24] MEDS: CHLORHEXIDINE 0.12% (ORAL KIT) 15 ML CUP MT SCH (07:53)
[2017-04-24] MEDS: INSULIN ASPART SUPPLEMENTAL SCALE SQ SCH (07:53)
[2017-04-24] MEDS: AZTREONAM INJ 1,000 MG in SODIUM CHLORIDE 0.9% INJ 100 ML IV SCH (09:10)
[2017-04-24] MEDS: predniSONE 20 MG TAB PO SCH (09:11)
[2017-04-24] MEDS: GABAPENTIN 300 MG CAP PO SCH (09:11)
[2017-04-24] MEDS: FAMOTIDINE 20 MG/2 ML VIAL IV PUSH SCH (09:11)
[2017-04-24] MEDS: METOPROLOL TARTRATE 50 MG TAB PO SCH (09:12)
[2017-04-24] MEDS: ASPIRIN 81 MG CHEW TAB PO SCH (09:12)
[2017-04-24] MEDS: FLUTICASONE PROPIONATE 44 MCG/ACT 10.6 GM INHALER INH SCH (09:16)
[2017-04-24] MEDS: ALBUTEROL SULFATE 90 MCG/ACT HFA 8 GM INHALER INH PRN (09:16)
--- NOTE | 2017-04-24 09:43 | PD.VS.PN ---
Subjective POD #: 7 Procedure(s): ABF with bilateral groin reconstructions Subjective/Hospital Course Pt eating breakfast this am alert in NAD Pain controlled LE warm w/ motor intact Provena wound vacs removed (B groins) Incisions I/C/D Objective Vitals/I&O Date Time Temp Pulse Resp B/P (MAP) Pulse Ox O2 Delivery O2 Flow Rate FiO2 04/24/17 08:02 95 21 04/24/17 08:00 98.6 74 18 148/70 (96) 95 04/24/17 07:00 74 04/24/17 06:00 76 04/24/17 05:00 79 04/24/17 04:00 77 04/24/17 03:40 98.2 76 18 146/67 (93) 95 04/24/17 03:00 74 04/24/17 02:00 71 04/24/17 01:00 73 04/24/17 00:00 68 04/23/17 23:30 97.9 69 18 125/67 (86) 98 04/23/17 23:00 75 04/23/17 22:00 78 04/23/17 21:00 82 04/23/17 21:00 97.9 68 18 150/77 (101) 97 04/23/17 20:00 84 04/23/17 19:00 89 04/23/17 18:18 16 04/23/17 18:01 92 04/23/17 17:05 77 04/23/17 16:09 84 04/23/17 15:15 97.9 81 16 129/71 (90) 97 04/23/17 15:15 85 04/23/17 15:01 18 04/23/17 14:00 76 04/23/17 13:04 84 04/23/17 12:00 90 04/23/17 11:22 79 04/23/17 11:22 97.8 80 16 110/58 (75) 95 04/23/17 10:11 87 04/24/17 04/24/17 04/24/17 07:00 15:00 23:00 Intake Total 480 ml Output Total 900 ml Balance -420 ml Exam: GENERAL: Afebrile 56/F, A&Ox3, NAD, GCS 15 SKIN: Warm and dry. Abdominal incision I/C/D, R/L groin incisions I/C/D, Pt with expected small blisters periwound (provena dressing) HEAD: Normocephalic. EYES: No scleral icterus. No injection or drainage. NECK: Supple, trachea midline. No JVD or lymphadenopathy. GASTROINTESTINAL: Abdomen soft, non-tender, nondistended. MUSCULOSKELETAL: No cyanosis, or edema. Palpable R/L DP LE warm with motor intact - Nausea/vomiting Laboratory Date/Time Source Procedure Growth Status 04/18/17 10:30 Blood Peripheral Aerobic Blood Culture - Final NO GROWTH IN 5 DAYS Complete 04/18/17 10:30 Blood Peripheral Anaerobic Blood Culture - Final NO GROWTH IN 5 DAYS Complete 04/18/17 20:00 Sputum Endotracheal Gram Stain - Final Complete 04/18/17 20:00 Sputum Endotracheal Sputum Culture - Final LIGHT GROWTH NORMAL RESPIRATORY KIM Complete 04/17/17 07:50 Urine Clean Catch Urine Culture - Final Escherichia Coli Complete Assessment and Plan Plan POD#7 s/p ABF, reintubated and now extubated; + flatus Pt doing well Pain controlled LE warm w/ motor intact Palpable distal pulses present Plan D/C today Arranged out pt f/u with a surveillance SULAIMAN Provena wound vacs removed (B groins) Araceli Blanco [employer] [facility] [phone] Discharge Planning home Monday (POD#7) s.o [phone] Araceli Blanco Apr 24, 2017 09:43
[2017-04-24] MEDS ORDERED: TIZA4 PO (09:45)
--- NOTE | 2017-04-24 10:04 | PD.VS.DC ---
Discharge Summary Admission Date: Apr 17, 2017 at 07:16 Discharge Date: Apr 24, 2017 Admission Diagnosis: (1) PAD (peripheral artery disease) Discharge Diagnosis: (1) PAD (peripheral artery disease) ICD Codes: I73.9 - Peripheral vascular disease, unspecified Brief History from admission 56 yo female with 5-10 step B claudication, failed fem-fem bypass. Procedure(s): ABF with bilateral groin reconstructions Significant Findings GENERAL: Afebrile 56/F, A&Ox3, NAD, GCS 15 SKIN: Warm and dry. Abdominal incision I/C/D, R/L groin incisions I/C/D, Pt with expected small blisters periwound (provena dressing) HEAD: Normocephalic. EYES: No scleral icterus. No injection or drainage. NECK: Supple, trachea midline. No JVD or lymphadenopathy. GASTROINTESTINAL: Abdomen soft, non-tender, nondistended. MUSCULOSKELETAL: No cyanosis, or edema. Palpable R/L DP LE warm with motor intact - Nausea/vomiting Laboratory Tests Test 04/21/17 18:08 04/22/17 10:19 04/22/17 10:26 White Blood Count 12.8 TH/MM3 (4.0-11.0) Red Blood Count 3.24 MIL/MM3 (4.00-5.30) Hemoglobin 9.9 GM/DL (11.6-15.3) Hematocrit 29.7 % (35.0-46.0) Blood Urea Nitrogen 38 MG/DL (7-18) Random Glucose 124 MG/DL (74-106) Calcium Level 8.3 MG/DL (8.5-10.1) Chloride Level 108 MEQ/L (98-107) Estimat Glomerular Filtration Rate 58 ML/MIN (>89) Hospital Course: 56 yo female with a Hx of 5-10 step B claudication, failed fem-fem bypass Pt S/P ABF with bilateral groin reconstructions Pt w/ daily BM since 04/22/17 Denied rest pain/claudication POD 1 Overnight, modest hypotension and marginal UOP. Pt very thirsty. POD 2 Appropriate fluid resuscitation yesterday and req reintubation last night Looks great this morning; improved oxygenation and CXR better POD 3 weaning vent she is alert and c/o anterior thigh numbness feet ok POD 4 extubated and mild SOB - on FM no flatus yet feet ok getting diuresis POD 5 continues to improve + flatus yesterday OOB TC and ambulated in room POD 6 haroldo clear liq, hungry voiding OOB and ambulating in room Feet "feel like her feet" again. POD 7 Pt eating breakfast this am alert in NAD Pain controlled LE warm w/ motor intact Provena wound vacs removed (B groins) Incisions I/C/D Pt doing well w/o rest pain/claudication D/C planning Arranged out pt f/u in 2-3W with a surveillance SULAIMAN Allergies Coded Allergies Type Severity Reaction Last Updated Verified Penicillins Allergy Severe SHORTNESS OF BREATH, HIVES 04/17/17 Yes codeine Allergy Severe Shortness of Breath 04/17/17 Yes hydromorphone Allergy Severe Shortness of Breath 04/17/17 Yes oxycodone Allergy Severe Shortness of Breath 04/17/17 Yes 04/22/17 04/22/17 04/23/17 04/23/17 04/24/17 04/24/17 06:00 18:00 06:00 18:00 06:00 18:00 Intake Total 100 ml 1000 ml 480 ml 820 ml 580 ml Output Total 980 ml 910 ml 200 ml 450 ml 900 ml Balance -880 ml 90 ml 280 ml 370 ml -320 ml Intake Oral 1000 ml 480 ml 720 ml 480 ml IV Total 100 ml 100 ml 100 ml Output Urine Total 830 ml 910 ml 200 ml 450 ml 900 ml Gastric Drainage Total 150 ml 0 ml # Voids 2 1 1 # Bowel Movements 0 1 1 2 2 Laboratory Tests Test 04/21/17 18:08 04/22/17 10:19 04/22/17 10:26 Potassium Level 4.1 MEQ/L 4.7 MEQ/L White Blood Count 12.8 TH/MM3 Red Blood Count 3.24 MIL/MM3 Hemoglobin 9.9 GM/DL Hematocrit 29.7 % Mean Corpuscular Volume 91.7 FL Mean Corpuscular Hemoglobin 30.5 PG Mean Corpuscular Hemoglobin Concent 33.3 % Red Cell Distribution Width 13.3 % Platelet Count 246 TH/MM3 Mean Platelet Volume 8.4 FL Blood Urea Nitrogen 38 MG/DL Creatinine 0.99 MG/DL Random Glucose 124 MG/DL Calcium Level 8.3 MG/DL Sodium Level 142 MEQ/L Chloride Level 108 MEQ/L Carbon Dioxide Level 24.8 MEQ/L Anion Gap 9 MEQ/L Estimat Glomerular Filtration Rate 58 ML/MIN Orders Procedure Category Date Status Time Methylnaltrexone Inj MED 04/21/17 Complete (Relistor Inj) 17:00 Furosemide Inj (Lasix MED 04/21/17 Complete Inj) 17:00 Potassium, Serum (K) LAB 04/21/17 Complete 17:01 Labetalol Inj MED 04/22/17 In Process (Trandate Inj) 04:15 Cbc No Diff, Includes LAB 04/22/17 Complete Plts 05:28 Basic Metabolic Panel LAB 04/22/17 Complete (Bmp) 05:28 Diet Clear Liquid DIET 04/22/17 Complete Lunch Furosemide Inj (Lasix MED 04/22/17 Complete Inj) 08:30 Remove Urinary BEVERLY 04/22/17 In Process Catheter 08:23 ^ Other Nursing Orders BEVERLY 04/22/17 In Process 08:23 Patient Transfer ADMITTING 04/22/17 Transmitted Prednisone (Deltasone) MED 04/22/17 In Process 09:00 Diet Heart Healthy DIET 04/23/17 Transmitted Breakfast Vascular Access Team BEVERLY 04/23/17 Complete Consult/P 08:41 Vascular Poc IMGUS 04/23/17 Taken Ultrasound Attending Discharge DISCHARGE 04/24/17 Transmitted Order Vital Signs Date Time Temp Pulse Resp B/P (MAP) Pulse Ox O2 Delivery O2 Flow Rate FiO2 04/24/17 08:02 95 21 04/24/17 08:00 98.6 74 18 148/70 (96) 95 04/24/17 07:00 74 04/24/17 06:00 76 04/24/17 05:00 79 04/24/17 04:00 77 04/24/17 03:40 98.2 76 18 146/67 (93) 95 04/24/17 03:00 74 04/24/17 02:00 71 04/24/17 01:00 73 04/24/17 00:00 68 04/23/17 23:30 97.9 69 18 125/67 (86) 98 04/23/17 23:00 75 04/23/17 22:00 78 04/23/17 21:00 82 04/23/17 21:00 97.9 68 18 150/77 (101) 97 04/23/17 20:00 84 04/23/17 19:00 89 04/23/17 18:18 16 04/23/17 18:01 92 04/23/17 17:05 77 04/23/17 16:09 84 04/23/17 15:15 97.9 81 16 129/71 (90) 97 04/23/17 15:15 85 04/23/17 15:01 18 04/23/17 14:00 76 04/23/17 13:04 84 04/23/17 12:00 90 04/23/17 11:22 79 04/23/17 11:22 97.8 80 16 110/58 (75) 95 04/23/17 10:11 87 04/23/17 09:00 81 04/23/17 08:43 66 04/23/17 07:47 97.9 66 16 148/72 (97) 97 04/23/17 07:47 69 04/23/17 07:31 97 21 04/23/17 06:03 65 04/23/17 05:13 66 04/23/17 04:10 67 04/23/17 03:40 97.9 68 17 153/84 (107) 96 04/23/17 03:11 70 04/23/17 02:25 76 04/23/17 01:25 76 04/23/17 00:50 64 04/22/17 23:53 98.0 64 16 106/55 (72) 98 04/22/17 23:53 65 04/22/17 22:04 69 04/22/17 21:26 79 04/22/17 20:15 94 04/22/17 19:35 98.4 95 17 137/69 (91) 97 04/22/17 19:35 82 04/22/17 18:05 72 04/22/17 15:00 70 04/22/17 15:00 98.1 84 16 139/74 (95) 94 04/22/17 10:32 94 Nasal Cannula 1.00 04/22/17 08:00 82 04/22/17 08:00 98.0 82 16 155/88 (110) 95 04/22/17 03:00 98.5 80 16 138/86 (103) 97 04/22/17 03:00 70 04/21/17 23:00 98.3 72 16 123/75 (91) 99 04/21/17 23:00 75 04/21/17 21:02 97 Nasal Cannula 3.00 04/21/17 19:00 98.1 88 18 131/76 (94) 95 04/21/17 19:00 90 04/21/17 15:38 98.3 78 20 138/80 (99) 98 04/21/17 15:00 72 04/21/17 11:08 98.4 94 20 132/80 (97) 95 04/21/17 11:00 99 Discharge Condition: Good Discharge Disposition: Discharge Home Discharge Instructions: Maintain a heart healthy diet Activities as tolerated Leave incisions open to air May shower then lightly pat dry incisions NO TUB BATHS/SWIMMING until incisions are fully healed Call the office to report any new onset redness, drainage or swelling Any questions or concerns: Call [facility] at [facility] [phone] Araceli Blanco Apr 24, 2017 10:04
--- NOTE | 2017-04-25 06:26 | PQ ---
Physician Query Response Document PATIENT: JAMEL SIDDIQI : 1960 ADMIT DATE: 04/17/2017 7:16 AM DISCH DATE: 04/24/2017 12:46 PM RESPONDING PROVIDER #: [email or web address] QUERY TEXT: Sepsis Query Based on your medical judgement, can you further clarify the followin. Sepsis (SIRS due to an infection) 2. Sepsis with Organ Dysfunction 3. A localized Infection only 4. Another condition - please specify 5. Unable to determine - please explain. 6. Sepsis ruled out Please also indicate if applicable: - Sepsis was present on Admission - Sepsis developed after admission Please call [facility] @ ext [phone] for assistance The patient's Clinical Indicators include: Per progress note 04/18/17: s/p Aortobifemoral bypass Hypotension/tachycardia SIRS UTI Acute kidney injury Probable sepsis Severe PAD COPD - Preop UTI with Escherichia coli Query created by: Mary Schulte on 04/21/2017 3:21 PM RESPONSE TEXT: Patient had sepsis Electronically signed by: Sreedhar Oscar MD 04/25/2017 6:22 AM
== END 2017-04-24 12:46 | disposition home or self-care (01) | DRG 270 ==
LOC: HSDI 07:16 → HCVI 14:21 → HCPC 04-22 17:25
PROVIDERS: ADMIT Surgery; ATTEND Surgery
PROC: 04CL0ZZ Extirpation of Matter from Left Femoral Artery, Open Approach (ICD-10-PCS; 2017-04-17)
PROC: 04CK0ZZ Extirpation of Matter from Right Femoral Artery, Open Approach (ICD-10-PCS; 2017-04-17)
PROC: 04UL0KZ Supplement Left Femoral Artery with Nonautologous Tissue Substitute, Open Approach (ICD-10-PCS; 2017-04-17)
PROC: 04UK0KZ Supplement Right Femoral Artery with Nonautologous Tissue Substitute, Open Approach (ICD-10-PCS; 2017-04-17)
PROC: 04100JK Bypass Abdominal Aorta to Bilateral Femoral Arteries with Synthetic Substitute, Open Approach (ICD-10-PCS; principal; 2017-04-17 08:59)
PROC: 5A1945Z Respiratory Ventilation, 24-96 Consecutive Hours (ICD-10-PCS; 2017-04-18)
PROC: 0BH17EZ Insertion of Endotracheal Airway into Trachea, Via Natural or Artificial Opening (ICD-10-PCS; 2017-04-18)
DX: I70.413 Atherosclerosis of autologous vein bypass graft(s) of the extremities with intermittent claudication, bilateral legs (principal); A41.9 Sepsis, unspecified organism; J96.01 Acute respiratory failure with hypoxia; I95.9 Hypotension, unspecified; J44.1 Chronic obstructive pulmonary disease with (acute) exacerbation; J81.0 Acute pulmonary edema; N17.9 Acute kidney failure, unspecified; E87.2 Acidosis; K56.7 Ileus, unspecified; N39.0 Urinary tract infection, site not specified; J98.11 Atelectasis; E87.70 Fluid overload, unspecified; E86.9 Volume depletion, unspecified; I25.10 Atherosclerotic heart disease of native coronary artery without angina pectoris; I10 Essential (primary) hypertension; F17.210 Nicotine dependence, cigarettes, uncomplicated; M19.90 Unspecified osteoarthritis, unspecified site; E78.5 Hyperlipidemia, unspecified; B96.20 Unspecified Escherichia coli [E. coli] as the cause of diseases classified elsewhere; G89.4 Chronic pain syndrome; R00.0 Tachycardia, unspecified; T40.605A Adverse effect of unspecified narcotics, initial encounter; Z88.0 Allergy status to penicillin; Z95.1 Presence of aortocoronary bypass graft; Z79.82 Long term (current) use of aspirin
CPT/HCPCS: 31500; 36600; 71045; 80048; 80053; 81001; 82570; 82805; 82948; 83605; 83735; 84132; 84155; 84300; 85014; 85025; 85027; 86850; 86900; 86901; 86920; 87040; 87070; 87077; 87086; 87186; 87205; 93306; 94002; 94003; 94150; 94640; 94664; 94667; 94668; C1768; J0131; J0610; J1100; J1644; J1650; J1815; J1885; J1940; J2212; J2250; J2270; J2370; J2405; J2710; J2720; J2920; J2930; J3010; J3370; J3475; J3480; J7030; J7040; J7050; J7070; J7120; J7512; J7613; P9047